=== PATIENT | female | born 1945 | race Caucasian/White ===

== ENCOUNTER 2020-08-25 10:15 | Outpatient (CLI) | payer MEDICARE, SELFPAY ==
--- NOTE | 2020-08-25 | ECG_ITS ---
Measurements Intervals [place] Rate: 54 P: -12 [place]: 155 QRS: -25 QRSD: 106 T: 16 QT: 434 QTc: 411 Interpretive Statements SINUS BRADYCARDIA LOW QRS VOLTAGE IN PRECORDIAL LEADS INCOMPLETE RIGHT BUNDLE BRANCH BLOCK BASELINE WANDER- I, II, III, AVR, AVL, AVF, V1-V4 BORDERLINE ECG Electronically Signed On 08-25-2020 11:09:16 CDT by Matthew Catherine D.O.
[2020-08-25 11:03] LABS: Anion Gap 7 mmol/L (8-16); Blood Urea Nitrogen 19 mg/dL (7-17); Calcium 9.5 mg/dL (8.4-10.2); Carbon Dioxide 29 mmol/L (22-30); Chloride 104 mmol/L (98-107); Estimated Glomerular Filt Rate > 60; Glucose 93 mg/dL (65-105); Potassium 4.1 mmol/L (3.4-5.0); Sodium 140 mmol/L (137-145)
== END 2020-08-25 10:16 | disposition home or self-care (01) ==
LOC: ANHLAB 10:19
PROVIDERS: PCP Nurse Practitioner Adult Health; Visit Provider Orthopaedic Surgery
DX: Z01.818 Encounter for other preprocedural examination (principal)
CPT/HCPCS: 36415; 80048; 93005

== ENCOUNTER 2021-09-14 03:05 | Day surgery (SDC) | payer MEDICARE, SELFPAY ==
[2021-08-27 09:53] VITALS: BMI 26.4
[2021-09-14] MEDS: LACTATED RINGERS 1,000 ML 150 ML IV CONT (07:02)
[2021-09-14 07:06] VITALS: BP 151/79; PULSE 77; RESP 18; TEMP 36.5; O2SAT 96
--- NOTE | 2021-09-14 07:24 | P.CONGI_ITS ---
Assessment and Plan Assessment and plan (1) Family history of colonic polyps: Code(s): Z83.71 - Family history of colonic polyps Status: Acute Assessment and Plan: Patient's family history is significant her sister has had colon polyps. She presents today for screening colonoscopy. GI Consult Note Consult date/time: 09/14/21 07:24 HPI: Carina Ken is a 75 year old female Presents for screening colonoscopy. Patient's family history is significant that her sister has had colon polyps. Patient reports that her current weight appetite bowel movements are normal. She denies abdominal pain. She has had no bleeding. Patient's last colonoscopy 2015 was unremarkable. She presents today for neoplasia screening colonoscopy. Review of Systems Review of Systems: All systems reviewed & are unremarkable except as noted in HPI and below PMFSH Social History Social History Smoking status: Never smoker Alcohol intake: current Drinks per week: 1 Substance use: never Substance use type: does not use Living arrangements: with family Spiritual care concerns: No Meds Home Medications and Allergies Home Medications Medication Instructions Recorded Confirmed Type [place]-3 Fish Oil 1,120 mg PO BID 11/01/19 08/27/21 History atorvastatin 10 mg PO HS 11/01/19 08/27/21 History chlorpheniramine-acetaminophen 1 tablet PO DAILY PRN 11/01/19 09/14/21 History [Coricidin HBP Cold and Flu] escitalopram oxalate [Lexapro] 5 mg PO DAILY 11/01/19 08/27/21 History latanoprost 1 drp OPHTHALMIC (EYE) QPM 11/01/19 08/27/21 History losartan 25 mg PO DAILY 11/01/19 08/27/21 History nctmdwjo-iqh-qskv-FA-lutein 1 tablet PO DAILY 11/01/19 08/27/21 History [Centrum Silver Women] timolol maleate 1 drp EACH EYE BID 08/27/21 08/27/21 History Allergies Allergy/AdvReac Type Severity Reaction Status Date / Time latex Allergy Mild TOPICAL ON Verified 09/14/21 07:04 HANDS-RASH Vital Signs Vital Signs - 24 hr 09/14/21 07:06 Temperature 97.7 F Pulse Rate 77 Respiratory Rate 18 Blood Pressure 151/79 H Pulse Oximetry 96 Exam Narrative: Physical exam reveals patient be alert. Vital signs stable. HEENT exam is unremarkable. Patient is anicteric. Lungs are clear to a uscultation and percussion. Heart is without murmur or extra sounds. Abdominal exam bowel sounds are present soft nontender with no organomegaly. Digital external rectal exam is normal.
--- NOTE | 2021-09-14 07:46 | P.PNAN_ITS ---
Anes - Initial Pre Proc Eval Procedure: Operation Date: 09/14/21 08:00 Proposed Procedures p Screening Colonoscopy - Jameel Dhillon MD Date/Time: 09/14/21 07:46 Surgeon: Jameel Dhillon MD Pre Op Diagnosis: hx of colon polyps Patient Data Age: 75 Gender: F Height: 1.55 m Weight: 63.4 kg Last Vital Signs Temp 97.7 F 09/14/21 07:06 Pulse 77 09/14/21 07:06 Resp 18 09/14/21 07:06 BP 151/79 H 09/14/21 07:06 Pulse Ox 96 09/14/21 07:06 Allergies Allergy/AdvReac Type Severity Reaction Status Date / Time latex Allergy Mild TOPICAL ON Verified 09/14/21 07:04 HANDS-RASH Home Medications Medication Instructions Recorded Confirmed Type [place]-3 Fish Oil 1,120 mg PO BID 11/01/19 08/27/21 History atorvastatin 10 mg PO HS 11/01/19 08/27/21 History chlorpheniramine-acetaminophen 1 tablet PO DAILY PRN 11/01/19 09/14/21 History [Coricidin HBP Cold and Flu] escitalopram oxalate [Lexapro] 5 mg PO DAILY 11/01/19 08/27/21 History latanoprost 1 drp OPHTHALMIC (EYE) QPM 11/01/19 08/27/21 History losartan 25 mg PO DAILY 11/01/19 08/27/21 History esrygvun-owx-qmdp-FA-lutein 1 tablet PO DAILY 11/01/19 08/27/21 History [Centrum Silver Women] timolol maleate 1 drp EACH EYE BID 08/27/21 08/27/21 History Patient hx anesthesia problems: none Family hx anesthesia problems: none Results Review: All pre-operative results and documents have been reviewed as part of the pre-operative evaluation. [facility] Social History Social History Smoking status: Never smoker Alcohol intake: current Drinks per week: 1 Substance use: never Substance use type: does not use Living arrangements: with family Spiritual care concerns: No Anes - Eval Final PreProcedure Day of Procedure 09/14/21 07:46 Patient weight: overweight Heart: regular rate and rhythm Lungs: clear to auscultation Airway: Mallampati scale class II Neurological: alert and oriented Last oral intake: >/= 8 hours ASA classification: III Emergent: no Anesthetic plan: proceed Anesthesia type and monitoring: general GIVS and standard monitoring Results Review: All pre-operative results and documents have been reviewed as part of the pre-operative evaluation. Informed Consent: The patient's anesthetic plan and its attendant risks and benefits were discussed with the patient/family/POA. Questions were solicited and answers provided to the satisfaction of the patient/family/POA.
[2021-09-14 08:23] VITALS: BP 93/55; PULSE 60; RESP 19; O2SAT 97
[2021-09-14 08:33] VITALS: BP 119/63; PULSE 61; RESP 20; O2SAT 98
[2021-09-14 08:43] VITALS: BP 139/68; PULSE 59; RESP 22; O2SAT 97
== END 2021-09-14 08:47 | disposition home or self-care (01) ==
PROVIDERS: PCP Nurse Practitioner Adult Health; Visit Provider Internal Medicine Gastroenterology
PROC: 0DJD8ZZ Inspection of Lower Intestinal Tract, Via Natural or Artificial Opening Endoscopic (ICD-10-PCS; CPT 45378; principal; 2021-09-14 08:00)
DX: Z12.11 Encounter for screening for malignant neoplasm of colon (principal); K57.30 Diverticulosis of large intestine without perforation or abscess without bleeding; Z83.71 Family history of colonic polyps
CPT/HCPCS: G0105; J2704; J7120

== ENCOUNTER 2021-10-31 02:46 | Observation (INO) | payer MEDICARE, SELFPAY ==
[2021-10-31] VITALS (19 sets, daily range): BP systolic 108–153; BP diastolic 49–100; PULSE 55–156; RESP 13–23; TEMP 35.8–36.9; O2SAT 95–100; BMI 26.2
--- NOTE | 2021-10-31 | ECHO_ITS ---
Patient Info Name: Carina Ken Age: 75 years : 1945 Gender: Female Ht: 61 in Wt: 138 lbs BSA: 1.66 m2 HR: 59 bpm Heart Rhythm: Sinus Rhythm Technical Quality: Good Exam Date: 10/31/2021 11:18 AM Exam Location: [facility] Patient Status: Inpatient Admit Date: 10/31/2021 Staff Ordering Physician: Carlos Thomas MD Adjuster Leader: Simona Manning [facility] Attending Provider: María Elena Echeverria MD Referring Physician: Martha MERCEDES; Exam Type: CA echo doppler color flow Study Info Indications I48.1 - Persistent atrial fibrillation Complete two-dimensional, color flow and Doppler transthoracic echocardiogram is performed. Summary 1. Complete two-dimensional, color flow and Doppler transthoracic echocardiogram is performed. 2. Small amount of tricuspid valve regurgitation. 3. Otherwise unremarkable echocardiogram. Left Ventricle Left ventricular chamber dimension is normal. Left ventricular systolic function is normal, estimated at 65-70%. The left ventricular diastolic function is normal. Right Ventricle Right ventricular chamber dimension is normal. Left Atria Left atrial chamber dimension is normal. Right Atria Right atrial chamber dimension is normal. Aortic Valve The aortic valve is normal. Pulmonic Valve The pulmonic valve is normal. Mitral Valve The mitral valve has normal leaflets. Tricuspid Valve The tricuspid valve leaflets are normal. There is mild tricuspid valve regurgitation. Pericardium/Pleural The pericardium appears normal. Aorta The aortic root size at the sinus of Valsalva is normal. Left Ventricular Outflow Tract Name Value Normal LVOT 2D LVOT Diameter 1.9 cm LVOT Doppler LVOT Peak Gradient 4 mmHg LVOT Mean Gradient 2 mmHg LVOT VTI 21 cm LVOT VTI/AV VTI Ratio 1.0 LVOT Stroke Volume 61 ml LVOT CO 3.8 l/min LVOT CI 2.3 l/min/m2 Pulmonic Valve Name Value Normal PV Doppler PV Peak Gradient 2 mmHg Mitral Valve Name Value Normal MV Doppler MV Decel Giles 317 cm/s2 MV PHT 63 ms MV Area (PHT) 3.5 cm2 4.0-5.0 MV Diastolic Function MV E Peak Velocity 69 cm/s MV A Peak Velocity 81 cm/s
--- NOTE | ~2021-10-31 | XR_ITS ---
EXAMINATION: XR chest 1V portable INDICATION: Heart palpitations, hypertension TECHNIQUE: Portable AP chest at 0328 hours COMPARISON: 05/08/2010 FINDINGS: The lungs are free of focal airspace opacities. There is mild atelectasis of the lung bases . No pleural effusion or pneumothorax is identified. The cardiomediastinal silhouette is normal. IMPRESSION: 1. No acute cardiopulmonary abnormality. Reviewed, dictated and finalized at location A. [facility] [facility] [employer]
--- NOTE | 2021-10-31 02:56 | ECG_ITS ---
Measurements Intervals [place] Rate: 127 P: PA: 0 QRS: 93 QRSD: 104 T: 6 QT: 292 QTc: 426 Interpretive Statements ATRIAL FIBRILLATION WITH RAPID VENTRICULAR RESPONSE VENTRICULAR PREMATURE COMPLEX RIGHT AXIS DEVIATION LOW QRS VOLTAGE IN PRECORDIAL LEADS INCOMPLETE RIGHT BUNDLE BRANCH BLOCK MINIMAL Q WAVES- INFERIOR LEADS BASELINE ARTIFACT- V5 ABNORMAL ECG Electronically Signed On 10-31-2021 7:55:00 CLINICAL DOCUMENTATION SPEC by Matthew Catherine D.O.
[2021-10-31] MEDS: dilTIAZem HCl INJ 25 MG/5 ML VIAL 10 MG IV PUSH (03:17)
--- NOTE | 2021-10-31 03:25 | ED.ARRPALP ---
HPI - Arrhythmia/Palpitations General Chief Complaint: Arrhythmia/Palpitations Stated Complaint: irregular heart beat Time Seen by Provider: 10/31/21 02:52 Source: patient Mode of arrival: ambulatory Limitations: no limitations History of Present Illness HPI narrative: This is a 75 year old female with history of hypertension who presents for evaluation of heart racing. Patient woke up this morning due to a rapid heart beat. She states her heart is pounding but she denies shortness of breath, chest pain, vomiting, dizziness or abdominal pain. She denies history of atrial fibrillation diagnosis but she had something similar in 2008. She was evaluated by a engineering scientist at that time and she was started on losartan . She continues to take losartan but she has not seen a engineering scientist since. She denies any other similar episode. She reports she had 1 glass of wine tonight. Related Data Home Medications Medication Instructions Recorded Confirmed [place]-3 Fish Oil 1,120 mg PO BID 11/01/19 08/27/21 atorvastatin 10 mg PO HS 11/01/19 08/27/21 escitalopram oxalate [Lexapro] 5 mg PO DAILY 11/01/19 08/27/21 latanoprost 1 drp OPHTHALMIC (EYE) QPM 11/01/19 08/27/21 losartan 25 mg PO DAILY 11/01/19 08/27/21 opamevtu-czr-nmff-FA-lutein 1 tablet PO DAILY 11/01/19 08/27/21 [Centrum Silver Women] timolol maleate 1 drp EACH EYE BID 08/27/21 08/27/21 Allergies Allergy/AdvReac Type Severity Reaction Status Date / Time latex Allergy Mild TOPICAL ON Verified 10/31/21 02:58 HANDS-RASH Review of Systems Review of Systems: All systems reviewed & are unremarkable except as noted in HPI and below PMFSH Past Medical History Medical History (Updated 10/31/21 @ 05:24 by María Elena Echeverria MD) Anxiety Hyperlipidemia Hypertension Social History Social History Smoking status: Never smoker Alcohol intake: current Drinks per week: 1 Substance use: never Substance use type: does not use Spiritual care concerns: No Exam Const: General: no acute distress and alert Orientation/consciousness: patient oriented x3 Eyes: EOM: EOMs intact bilaterally Chest: Chest palpation & inspection: normal inspection of the chest Resp: Effort & Inspection: normal respiratory effort and no retractions Auscultation: clear to auscultation bilaterally Cardio: Rate: tachycardic Rhythm: abnormal rhythm irregularly irregular Heart sounds: no murmurs GI: GI Palp: Yes Soft to palpation, No Tenderness to palpation present (GI) and No Guarding due to palpation present (GI) Auscultation: normal bowel sounds Back/Spine/Pelvis: Back: no CVA tenderness Skin: General skin exam: normal color Rashes: no rashes Neuro: General: patient oriented x3, moves all extremities and CN's II-XI intact bilaterally Extrem: General: normal to inspection Psych: Mental Status: mental status grossly normal Affect: normal affect Course Reevaluation(s) Reevaluation #1: I have discussed with patient and her that she will need to be admitted for treatment of atrial fibrillation that is new. I Also spoke with Dr. Echeverria who accepts patient to hospitalist service to IMU. Date: 10/31/21 Time: 04:17 Reevaluation #2: Patient actually just converted to sinus rhythm. I discussed with patient that she can be discharged if she stays in sinus. She wants to be obs in hospital instead of discharge at this point. Date: 10/31/21 Time: 06:17 Consultations Consultation #1: I spoke to Dr. Thomas. Patient actually just converted to sinus rhythm. He states he will see patient if admitted. If discharged patient should be started on beta block and anticoagulation. Date: 10/31/21 Time: 06:14 Vital Signs Vital signs: Vital Signs Temperature 98.3 F 10/31/21 02:55 Pulse Rate 156 H 10/31/21 02:55 Respiratory Rate 23 H 10/31/21 02:55 Blood Pressure 153/100 H 10/31/21 02:55 Pulse Oximetry 98 10/31/21 02:55 Temperature 98.3 F
[2021-10-31 03:29] LABS: Basophils Percent Auto 0.2 % (0.2-1.2); Eosinophils Absolute Auto 0.1 K/mm3 (0-0.3); Eosinophils Percent Auto 1.3 % (0-4.4); Hematocrit 45.7 % (37.0-47.0); Hemoglobin 15.5 g/dL (12.0-15.0); Immature Granulocyte Absolute 0.02 K/mm3 (0.00-0.031); Immature Granulocyte Percent A 0.2 % (0-0.5); Lymphocytes Absolute Auto 3.66 K/mm3 (0.9-3.2); Lymphocytes Percent Auto 43.8 % (18.3-44.2); Mean Corpuscular HGB Conc 33.9 g/dl (32-36); Mean Corpuscular Hemoglobin 31.2 pg (26-34); Mean Platelet Volume 9.7 fl (7.4-10.4); Monocytes Absolute Auto 0.8 K/mm3 (0.1-0.6); Monocytes Percent Auto 9.7 % (2.6-8.5); Neutrophils Absolute Auto 3.7 K/mm3 (1.3-6.7); Neutrophils Percent Auto 44.8 % (45.5-73.1); Platelet Count Result 247 k/mm3 (150-375); Red Blood Count 4.97 M/mm3 (4.2-5.4); Red Cell Distribution Width 13.2 % (11.5-14.5); White Blood Count 8.4 K/mm3 (4.5-10.0)
[2021-10-31 03:38] LABS: INR 0.9; Prothrombin Time 11.9 Seconds (11.1-14.7)
[2021-10-31 03:39] LABS: Partial Thromboplastin Time 25.7 SECONDS (22.3-36.8)
[2021-10-31 03:42] LABS: Alanine Aminotransferase 40 U/L (4-35); Albumin Level 4.7 g/dL (3.5-5.1); Alkaline Phosphatase 69 U/L (38-126); Anion Gap 7 mmol/L (8-16); Aspartate Amino Transferase 48 U/L (14-36); Bilirubin,Total 0.4 mg/dL (0.2-1.3); Blood Urea Nitrogen 17 mg/dL (7-17); Calcium 9.5 mg/dL (8.4-10.2); Carbon Dioxide 27 mmol/L (22-30); Chloride 102 mmol/L (98-107); Estimated CRCL calculation 47 ml/min; Estimated Glomerular Filt Rate > 60; Glucose 113 mg/dL (65-110); Magnesium 1.9 mg/dL (1.6-2.3); Potassium 3.7 mmol/L (3.4-5.0); Sodium 136 mmol/L (137-145)
--- NOTE | 2021-10-31 03:43 | PC.NURSE ---
rn double check pati houston rn
[2021-10-31 03:53] LABS: Troponin I < 0.012 ng/mL (0.000-0.034)
[2021-10-31] MEDS: ENOXAPARIN 80 MG/0.8 ML SYRINGE 60 MG SUB-Q (04:15)
[2021-10-31 04:56] LABS: Free T4 Free Thyroxine Reflex 1.26 ng/dL (0.78-2.19)
--- NOTE | 2021-10-31 05:08 | PM.IMHP ---
H&P: HPI History of Present Illness Date/Time: 10/31/21 05:08 Chief Complaint: Palpitations Narrative: This is a 75-year-old female with past medical history significant for hypertension, dyslipidemia, glaucoma. Patient presented to the emergency room was driven by her . Patient was suddenly awakened by palpitations heavy pounding on her chest felt nauseous but no vomiting, no lightheadedness, no dizziness, no near-syncope or syncope and no chest pain ,no cough ,no changes of her vision, her took her blood pressure and he was 130 is over 100s patient try walking and going to the bathroom came back and laying in bed but did not get better. In emergency room patient was found to be on atrial fibrillation and was started on a diltiazem drip at the time of my visit patient denied any discomfort. Patient can not recall 1 other episode back in 2008 at that time she had Holter monitoring but no abnormalities were recorded and patient has remained without symptoms of this nature. Preliminary workup was significant for a TSH of 5.15 a chest x-ray was clear chemistry panel is essentially nonrevealing Review of Systems Review of Systems: Heaviness of the chest, pounding ,palpitations ,nausea. Constitutional: Constitutional: Denies chills, Denies fatigue and Denies fever(s) Eyes: Eyes: Denies change in vision ENT: Denies dysphagia, Denies vertigo, Denies nasal congestion, Denies nasal discharge, Denies nasal obstruction and Denies odynophagia Cardiovascular: Cardiovascular: Denies chest pain at rest, Denies syncope, Reports rapid heart rate, Denies pedal edema, Reports irregular heart rhythm, Denies leg edema, Denies radiating jaw, neck or arm pain, Reports palpitations, Denies dyspnea, Denies dyspnea on exertion and Denies orthopnea Respiratory: Respiratory: Denies cough and Denies dyspnea Gastrointestinal: Gastrointestinal: Denies abdominal pain, Denies dyspepsia, Denies heartburn, Reports nausea and Denies vomiting Genitourinary: Genitourinary: Denies dysuria and Denies flank pain Musculoskeletal: Musculoskeletal: Reports arthralgias (Left knee torn meniscus) Integumentary/Breasts: Skin/Breast: Denies rash Neurologic: Denies focal weakness and Denies Sensory deficit (Neuro) Psychiatric: Psychiatric: Reports no additional psychiatric complaints and Reports as per HPI Endocrine: Endocrine: Reports no additional endocrine complaints and Reports as per HPI Hematologic/Lymphatic: Hematologic/Lymphatic: Reports no additional hematologic/lymphatic complaints and Reports as per HPI Allergic/Immunologic: Allergic/Immunologic: Reports no additional allergic/immunologic complaints and Reports as per HPI [facility] Past Medical History Medical History (Updated 10/31/21 @ 05:24 by María Elena Echeverria MD) Anxiety Hyperlipidemia Hypertension Social History Social History Smoking status: Never smoker Alcohol intake: current Drinks per week: 1 Substance use: never Substance use type: does not use Spiritual care concerns: No Meds Home Medications and Allergies Home Medications Medication Instructions Recorded Confirmed Type [place]-3 Fish Oil 1,120 mg PO BID 11/01/19 08/27/21 History atorvastatin 10 mg PO HS 11/01/19 08/27/21 History escitalopram oxalate [Lexapro] 5 mg PO DAILY 11/01/19 08/27/21 History latanoprost 1 drp OPHTHALMIC (EYE) QPM 11/01/19 08/27/21 History losartan 25 mg PO DAILY 11/01/19 08/27/21 History kberphpo-bgd-tnrn-FA-lutein 1 tablet PO DAILY 11/01/19 08/27/21 History [Centrum Silver Women] timolol maleate 1 drp EACH EYE BID 08/27/21 08/27/21 History Allergies Allergy/AdvReac Type Severity Reaction Status Date / Time latex Allergy Mild TOPICAL ON Verified 10/31/21 02:58 HANDS-RASH Vital Signs Vital Signs - 24 hr 10/31/21 02:55 10/31/21 03:54 10/31/21 04:44 Temperature 98.3 F Pulse Rate 156 H 146 H 127 H Respiratory Rate 23 H 17 20 Blood Pressure 153/100 H 118/70
[2021-10-31 05:38] LABS: Total Triiodothyronine (T3) 1.61 NG/ML (0.97-1.69)
--- NOTE | 2021-10-31 06:17 | PC.NURSE ---
LINDSAY received from [facility] Dr. Mars to discontinue diltiazem drip after EKG confirms pt has converted back to sinus rhythm.
--- NOTE | 2021-10-31 07:13 | PC.NURSE ---
Report received from MICHELLE Hess. Pt ambulating back from bathroom. Reconnected to shelter monitor. Note SR without ectopy. Pt denies cp or shortness of breath. Awaiting floor bed to be available.
--- NOTE | 2021-10-31 07:52 | PC.NURSE ---
Report received by MICHELLE Hess with the ER at 0734. All questions answered and plan of care reviewed. Patient to go to IMU room 214.
--- NOTE | 2021-10-31 08:07 | ADMGEN ---
This patient, Carina Ken, was admitted to IMU Room 214-01 at 0750. Patient/family oriented to hospital policies and general routines including ID bracelet, bed and alarms, visiting hours, pain management, procedures, bathroom and other care routines, personal items, smoking policy, room service/diet, and visiting hours. Information on how to activate the Rapid Response Team has been discussed. Patient/Family are encouraged to report perceived risks to care and to ask questions if they do not understand what they are told or what they should do.
--- NOTE | 2021-10-31 10:28 | ECG_ITS ---
Measurements Intervals [place] Rate: 66 P: 64 [place]: 188 QRS: -35 QRSD: 109 T: 35 QT: 402 QTc: 423 Interpretive Statements SINUS RHYTHM LEFT AXIS DEVIATION LOW QRS VOLTAGE IN PRECORDIAL LEADS INCOMPLETE RIGHT BUNDLE BRANCH BLOCK BORDERLINE ECG Electronically Signed On 10-31-2021 16:58:38 IRON HANDLER by Matthew Catherine D.O.
--- NOTE | 2021-10-31 13:33 | PM.CNCAR ---
Assessment and Plan Additional Plan 75-year-old white female with: Symptomatic atrial fib with RVR for which she was seen in the emergency room early this morning. After being rate control with diltiazem she spontaneously converted back to sinus rhythm and became asymptomatic. The diltiazem has then been discontinued. He does have hypertension and mitral valve prolapse by history as potential etiologies of her atrial fib. At this point I would recommend placing her on metoprolol at a modest dose of 25 mg daily and systemic anticoagulation with Xarelto. I will review her echocardiogram when it is done and hopefully she will not have recurrent atrial fibrillation in the hours that will I had. If she is stable and without arrhythmias tomorrow I would hope she can be discharged for outpatient follow-up. Carlos Thomas MD [facility] History of Present Illness History of Present Illness Consult date/time: 10/31/21 13:33 Consult reason: atrial fibrillation Reason For Visit: atrial fibrillation with rvr,new onset Narrative: This is a pleasant 75-year-old lady I am seeing this afternoon at the request of the hospitalist who has been admitted because of symptomatic atrial fibrillation. The patient has no prior history of known atrial fibrillation. She says she carries the diagnosis of mitral valve prolapse that her primary care physician told her that she had many years ago. She can not really recall how that diagnosis might of been established. In any event she came to the emergency room when she was awakened in the middle of the night with tachycardia and palpitations somewhere between 1 and 130 in the morning. She tried to relax at home and see if this would subside but when it did not she came into the emergency department was found to be in atrial fib with RVR. Of course she was placed on intravenous diltiazem with a bolus and infusion which did control her heart rate and after several hours of being in the emergency room she spontaneously converted back to sinus rhythm and became asymptomatic. I was then contacted by telephone and indicated that the patient certainly be discharged and I can see her in the office however she her preference was to be hospitalized and so I am seeing her in the IMU this afternoon. She is otherwise a reasonably healthy lady she does lead an active lifestyle and does not have any exertional symptoms such as dyspnea or chest pain she denies any history of syncope orthopnea PND or accumulating lower extremity edema. She also has a history of hypertension which is being treated with a low dose of losartan. An echocardiogram has already been performed but has not yet been interpreted and in the setting I am seeing her in consultation. Review of Systems Constitutional: Constitutional: Reports no additional constitutional complaints and Reports fatigue Eyes: Eyes: Reports no additional eye complaints ENT: Reports system reviewed and no additional complaints, except as documented Cardiovascular: Cardiovascular: Reports palpitations Respiratory: Respiratory: Reports no additional respiratory complaints Gastrointestinal: Gastrointestinal: Reports no additional gastrointestinal complaints Musculoskeletal: Musculoskeletal: Reports no additional musculoskeletal complaints Integumentary/Breasts: Skin/Breast: Reports system reviewed and no additional complaints, except as docu Neurologic: Reports system reviewed and no additional complaints, except as documented Endocrine: Endocrine: Reports no additional endocrine complaints Hematologic/Lymphatic: Hematologic/Lymphatic: Reports no additional hematologic/lymphatic complaints Allergic/Immunologic: Allergic/Immunologic: Reports no additional allergic/immunologic complaints [facility] Past Medical History Medical History (Updated 10/31/21 @ 05:24 by María Elena Echeverria MD) Anxiety Hyperlipidemia Hypertension Family History Family History (Updated 10/31/21 @ 08:12 by
[2021-10-31] MEDS: METOPROLOL SUCCINATE EXT REL 25 MG TABCR PO (15:45)
--- NOTE | 2021-10-31 15:49 | PM.IMPN ---
Progress Note: A&P Assessment and Plan (1) Atrial fibrillation with rapid ventricular response: Code(s): I48.91 - Unspecified atrial fibrillation Status: Acute Assessment and Plan: Admit to IMU Diltiazem drip Echocardiogram in a.m. Cardiology consult Anticoagulated with Lovenox 10/31/2021 Interval hisrory: upon arrival to emergency depart patient was started on diltiazem drip this converted patient to sinus rhythm, today patient seen by plant operator control room operator recommended to start on metoprolol 25 mg to control the rhythm and rate, also recommend to anticoagulated patient with Xarelto, patient remains clinically stable, has no complains of chest pain shortness of breath palpitation fever or chills will continue to monitor and further recommendation to follow. (2) Hypertension: Code(s): I10 - Essential (primary) hypertension Status: Inactive Assessment and Plan: Resume home meds Continue to monitor (3) Hyperlipidemia: Code(s): E78.5 - Hyperlipidemia, unspecified Status: Inactive Assessment and Plan: Continue statin (4) Left knee pain: Code(s): M25.562 - Pain in left knee Status: Acute Assessment and Plan: Patient is scheduled for surgery in a few weeks. Tylenol p.r.n. Subjective Date/time seen: 10/31/21 15:49 Chief Complaint: Palpitations HPI Narrative: This is a 75-year-old female with past medical history significant for hypertension, dyslipidemia, glaucoma. Patient presented to the emergency room was driven by her . Patient was suddenly awakened by palpitations heavy pounding on her chest felt nauseous but no vomiting, no lightheadedness, no dizziness, no near-syncope or syncope and no chest pain ,no cough ,no changes of her vision, her took her blood pressure and he was 130 is over 100s patient try walking and going to the bathroom came back and laying in bed but did not get better. In emergency room patient was found to be on atrial fibrillation and was started on a diltiazem drip at the time of my visit patient denied any discomfort. Patient can not recall 1 other episode back in 2008 at that time she had Holter monitoring but no abnormalities were recorded and patient has remained without symptoms of this nature. Preliminary workup was significant for a TSH of 5.15 a chest x-ray was clear chemistry panel is essentially nonrevealing, 10/31/2021 Interval hisrory: upon arrival to emergency depart patient was started on diltiazem drip this converted patient to sinus rhythm, today patient seen by plant operator control room operator recommended to start on metoprolol 25 mg to control the rhythm and rate, also recommend to anticoagulated patient with Xarelto, patient remains clinically stable, has no complains of chest pain shortness of breath palpitation fever or chills will continue to monitor and further recommendation to follow. Review of Systems Review of Systems: All systems reviewed & are unremarkable except as noted in HPI and below Exam Narrative: Patient is comfortable, NAD HEENT: eyes are clear and none icteric LUNGS:CTA HEART: RR S1S2 ABD: not distended Lower extremities: no edema SKIN: nonjaundiced Neuro: grossly intact. Objective Data Vital Signs Vital Signs: Vital Signs - 24 hr 10/31/21 02:55 10/31/21 03:54 10/31/21 04:44 Temperature 98.3 F Pulse Rate 156 H 146 H 127 H Respiratory Rate 23 H 17 20 Blood Pressure 153/100 H 118/70 108/67 Pulse Oximetry 98 96 96 10/31/21 05:23 10/31/21 06:17 10/31/21 07:13 Temperature Pulse Rate 109 H 73 67 Respiratory Rate 13 17 18 Blood Pressure 114/68 108/50 L 124/70 Pulse Oximetry 97 95 97 10/31/21 07:36 10/31/21 07:50 10/31/21 15:45 Temperature 96.4 F L Pulse Rate 63 68 65 Respiratory Rate 16 16 Blood Pressure 118/65 130/56 L Pulse Oximetry 96 98 Intake/Output Intake/Output: Intake & Output 10/28/21 10/29/21 10/30/21 10/31/21 23:59 23:59 23:59 23:59 Intake T
[2021-10-31] MEDS: RIVAROXABAN 20 MG TABLET PO (18:43)
[2021-10-31] MEDS: ESCITALOPRAM OXALATE 5 MG TABLET PO (21:44)
[2021-11-01] VITALS (9 sets, daily range): BP systolic 118–154; BP diastolic 60–81; PULSE 51–76; RESP 15–18; TEMP 36.7–37.1; O2SAT 97–98
[2021-11-01 06:01] LABS: Hematocrit 39.1 % (37.0-47.0); Hemoglobin 13.1 g/dL (12.0-15.0); Mean Corpuscular HGB Conc 33.5 g/dl (32-36); Mean Corpuscular Volume 92.4 fl (80-100); Mean Platelet Volume 9.7 fl (7.4-10.4); Platelet Count Result 197 k/mm3 (150-375); Red Blood Count 4.23 M/mm3 (4.2-5.4); Red Cell Distribution Width 13.3 % (11.5-14.5); White Blood Count 5.6 K/mm3 (4.5-10.0)
[2021-11-01 06:15] LABS: Anion Gap 6 mmol/L (8-16); Blood Urea Nitrogen 14 mg/dL (7-17); Calcium 9.1 mg/dL (8.4-10.2); Carbon Dioxide 26 mmol/L (22-30); Chloride 105 mmol/L (98-107); Estimated CRCL calculation 52 ml/min; Estimated Glomerular Filt Rate > 60; Glucose 98 mg/dL (65-110); Magnesium 2.2 mg/dL (1.6-2.3); Potassium 3.9 mmol/L (3.4-5.0); Sodium 137 mmol/L (137-145)
[2021-11-01] MEDS: METOPROLOL SUCCINATE EXT REL 25 MG TABCR PO (08:21)
[2021-11-01] MEDS: OMEGA 3 POLYUNSAT FATTY ACIDS 1 GM CAP PO (08:21)
[2021-11-01] MEDS: TIMOLOL MALEATE 0.5% OP SOLN 5 ML BOTTLE 1 DROP EACH EYE (08:22)
--- NOTE | 2021-11-01 10:24 | PM.PNCARD ---
Progress Note: A&P Additional Plan 75-year-old lady with paroxysmal atrial fibrillation having been converted to sinus rhythm in the ER yesterday as detailed above. Her echocardiogram looks normal making the diagnosis here low own atrial fibrillation. For now I would recommend continuing the metoprolol and Xarelto that we started yesterday and she can be discharged for follow-up as an outpatient. Carlos Thomas MD [facility] Subjective Date/time seen: Date of service: 11/01/21 10:24 Interval history: Follow-up visit in this 75-year-old lady with: Paroxysmal atrial fibrillation presented with a symptomatic occurrence of this arrhythmia to the emergency department. After being given IV diltiazem she spontaneously converted to sinus rhythm and remains in sinus since then. Low-dose metoprolol has been started and she has been anticoagulated with Xarelto. Echocardiogram done yesterday is essentially unremarkable. Discussed with the patient that her prior diagnosis of mitral valve prolapse should be discarded. She seems to be a good candidate for discharge today. I will arrange follow-up in my office within the next month for ongoing follow-up of her P AFib. Exam Const: General: comfortable and no acute distress HENMT: Mouth: Yes moist mucous membranes Eyes: Sclera: sclerae normal Neck: Neck: supple and no JVD Resp: Effort & Inspection: normal respiratory effort Auscultation: clear to auscultation bilaterally Cardio: Rate: regular rate Rhythm: regular rhythm GI: GI Palp: Yes Soft to palpation Auscultation: normal bowel sounds Skin: General skin exam: normal color Neuro: Cognition (Neuro): normal cognition Extrem: General: normal to inspection Objective Data Vital Signs Vital Signs: Vital Signs - 24 hr 10/31/21 12:00 10/31/21 14:00 10/31/21 15:45 Temperature Pulse Rate 66 65 65 Respiratory Rate Blood Pressure Pulse Oximetry 10/31/21 16:00 10/31/21 18:00 10/31/21 19:50 Temperature 36.3 C L 36.9 C Pulse Rate 86 71 65 Respiratory Rate 18 16 Blood Pressure 119/49 L 120/67 Pulse Oximetry 96 97 10/31/21 20:00 10/31/21 22:00 10/31/21 23:56 Temperature 36.3 C L Pulse Rate 59 L 55 L 62 Respiratory Rate 15 Blood Pressure 136/71 Pulse Oximetry 100 11/01/21 00:00 11/01/21 02:00 11/01/21 04:00 Temperature 37.1 C Pulse Rate 51 L 52 L 54 L Respiratory Rate 15 Blood Pressure 118/60 Pulse Oximetry 98 11/01/21 06:00 11/01/21 08:00 11/01/21 08:21 Temperature 36.7 C Pulse Rate 63 63 68 Respiratory Rate 18 Blood Pressure 154/81 H Pulse Oximetry 97 Intake/Output Intake/Output: Intake & Output 10/29/21 10/30/21 10/31/21 11/01/21 23:59 23:59 23:59 23:59 Intake Total 1260 400 Balance 1260 400 Meds/Results Medications: Active Medications Generic Name Dose Route Start Last Admin Trade Name Freq PRN Reason Stop Dose Admin Atorvastatin Calcium 10 mg 11/01/21 21:00 Atorvastatin 10 Mg Tablet PO HS OMKAR Escitalopram Oxalate 5 mg 11/01/21 21:00 Escitalopram Oxalate 5 Mg Tablet PO HS OMKAR Fish Oil 1 gm 11/01/21 09:00 11/01/21 08:21 [place] 3 Polyunsat Fatty Acids 1 Gm Cap PO 12/01/21 08:59 1 gm DAILY OMKAR Administration Latanoprost 1 drop 11/01/21 18:00 Latanoprost 0.005% Op Soln 2.5 Ml Btl EACH EYE QPM OMKAR Metoprolol Succinate 25 mg 10/31/21 13:35 11/01/21 08:21 Metoprolol Succinate Ext Rel 25 Mg Tabcr PO 25 mg QAM OMKAR Administration Ondansetron HCl 4 mg 10/31/21 04:19 Ondansetron Inj 4 Mg/2 Ml Vial IV PUSH Q4H PRN Nausea Rivaroxaban 20 mg 10/31/21 17:00 10/31/21 18:43 Rivaroxaban 20 Mg Tablet PO 20 mg DAILY@1700 OMKAR Administration Timolol Maleate 1 drop 11/01/21 09:00 11/01/21 08:22 Timolol Maleate 0.5% Op Soln 5 Ml Bottle EACH EYE 1 drop QAM OMKAR Administration Radiology Results: ITS Impressions Chest X-Ray 10/31/21 09:56 IMPRESSION
--- NOTE | 2021-11-01 11:41 | PM.DS ---
DS: Admitting Diagnosis Discharge Date 11/01/2021 Admitting Diagnosis atrial fibrillation with RVR DS: Discharge Diagnosis Discharge Diagnosis (1) Atrial fibrillation with rapid ventricular response: Code(s): I48.91 - Unspecified atrial fibrillation Status: Acute Assessment and Plan: Admit to IMU Diltiazem drip Echocardiogram in a.m. Cardiology consult Anticoagulated with Lovenox 10/31/2021 Interval hisrory: upon arrival to emergency depart patient was started on diltiazem drip this converted patient to sinus rhythm, today patient seen by security inspector recommended to start on metoprolol 25 mg to control the rhythm and rate, also recommend to anticoagulated patient with Xarelto, patient remains clinically stable, has no complains of chest pain shortness of breath palpitation fever or chills will continue to monitor and further recommendation to follow. (2) Hypertension: Code(s): I10 - Essential (primary) hypertension Status: Inactive Assessment and Plan: Resume home meds Continue to monitor (3) Hyperlipidemia: Code(s): E78.5 - Hyperlipidemia, unspecified Status: Inactive Assessment and Plan: Continue statin (4) Left knee pain: Code(s): M25.562 - Pain in left knee Status: Acute Assessment and Plan: Patient is scheduled for surgery in a few weeks. Tylenol p.r.n. DS: Summary Hospital Course Reason for hospitalization: Chief Complaint: Palpitations Narrative: This is a 75-year-old female with past medical history significant for hypertension, dyslipidemia, glaucoma. Patient presented to the emergency room was driven by her . Patient was suddenly awakened by palpitations heavy pounding on her chest felt nauseous but no vomiting, no lightheadedness, no dizziness, no near-syncope or syncope and no chest pain ,no cough ,no changes of her vision, her took her blood pressure and he was 130 is over 100s patient try walking and going to the bathroom came back and laying in bed but did not get better. In emergency room patient was found to be on atrial fibrillation and was started on a diltiazem drip at the time of my visit patient denied any discomfort. Patient can not recall 1 other episode back in 2008 at that time she had Holter monitoring but no abnormalities were recorded and patient has remained without symptoms of this nature. Preliminary workup was significant for a TSH of 5.15 a chest x-ray was clear chemistry panel is essentially nonrevealing Hospital Course: 10/31/2021 Interval hisrory: upon arrival to emergency depart patient was started on diltiazem drip this converted patient to sinus rhythm, today patient seen by security inspector recommended to start on metoprolol 25 mg to control the rhythm and rate, also recommend to anticoagulated patient with Xarelto, patient remains clinically stable, has no complains of chest pain shortness of breath palpitation fever or chills will continue to monitor and further recommendation to follow. patient with a proximal atrial fibrillation patient is clinically stable, currently in sinus rhythm and rate is controlled, has no new complaints denies any chest pain shortness of breath palpitation fever or chills, seen by her security inspector patient is clinically stable will discharge the patient home today, patient will follow-up with her security inspector as scheduled. Status at Discharge Functional status at discharge: independent ambulation Overall status at discharge: patient is back to baseline Time Spent with Patient Time attestation: Total time spent providing and/or coordinating discharge services: Patient was seen and examined at the time of the discharge Condition at discharge is stable Code status: Full code. Time spent preparing discharge summary, discharge medications, discussing discharge planning with case finisher and patient is 35 minutes. Time spent: Greater than 30 minutes Exam Narrative: Patient i
== END 2021-11-01 13:20 | disposition home or self-care (01) ==
LOC: ANHED 04:19 → ANHIMU 11-01 11:40
PROVIDERS: Admitting Provider Internal Medicine; Emergency Provider General Practice; PCP Nurse Practitioner Adult Health; Visit Provider Family Medicine
DX: I48.91 Unspecified atrial fibrillation (principal); I10 Essential (primary) hypertension; E78.5 Hyperlipidemia, unspecified; M25.562 Pain in left knee; F41.9 Anxiety disorder, unspecified; H40.9 Unspecified glaucoma
CPT/HCPCS: 36415; 71045; 80048; 80053; 83735; 84439; 84443; 84480; 84484; 85025; 85027; 85610; 85730; 93005; 93306; 96365; 96366; 96372; 99285; A9270; G0378; J1650

== ENCOUNTER 2023-05-06 09:38 | Emergency (ER) | payer MEDICARE, SELFPAY ==
[2023-05-06] VITALS (21 sets, daily range): BP systolic 99–125; BP diastolic 51–66; PULSE 63–78; RESP 8–22; TEMP 36.4; O2SAT 96–99
--- NOTE | ~2023-05-06 | CT_ITS ---
EXAMINATION: CT brain wo con DATE: 05/06/2023 10:42 INDICATION: Dizziness. TECHNIQUE: Computed tomography (CT) of the head was performed without intravenous contrast. The dose- length product was 605.33 mGy-cm. Automated exposure control and iterative reconstruction technique w ere employed. COMPARISON: None FINDINGS: Brain parenchymal volume is normal for age. There are scattered mild periventricular and sheehan bcortical white matter changes, most likely related to small vessel ischemic disease (microangiopathy ). No ventriculomegaly or midline shift. Basilar cisterns are patent. No acute infarction, hemorrhage , mass or mass effect. Paranasal sinuses and mastoids are pneumatized. No depressed skull fractures. IMPRESSION: 1. No acute intracranial abnormality. Reviewed, dictated and finalized at location []
--- NOTE | 2023-05-06 09:41 | ECG_ITS ---
Measurements Intervals [place] Rate: 71 P: 77 FL: 160 QRS: -22 QRSD: 109 T: 46 QT: 407 QTc: 443 Interpretive Statements SINUS RHYTHM WITH OCCASIONAL SUPRAVENTRICULAR PREMATURE COMPLEXES BORDERLINE LEFT AXIS DEVIATION [QRS AXIS < -20] LOW QRS VOLTAGE IN PRECORDIAL LEADS [QRS DEFLECTION < 1.0 mV IN CHEST LEADS] INCOMPLETE RIGHT BUNDLE BRANCH BLOCK [90+ ms QRS DURATION, TERMINAL R IN V1/V2, 40+ ms S IN I/aVL/V4/V5/V6] COMPARED TO ECG 10/31/2021 06:12:14 NO SIGNIFICANT CHANGES Electronically Signed On 05-06-2023 13:31:28 CDT by Carlos Thomas M.D.
[2023-05-06 10:20] LABS: Basophils Percent Auto 0.2 % (0.2-1.2); Eosinophils Absolute Auto 0.2 K/mm3 (0-0.3); Eosinophils Percent Auto 3.6 % (0-4.4); Hematocrit 46.2 % (37.0-47.0); Hemoglobin 15.3 g/dL (12.0-15.0); Immature Granulocyte Absolute 0.02 K/mm3 (0.00-0.031); Immature Granulocyte Percent A 0.3 % (0-0.5); Lymphocytes Absolute Auto 2.12 K/mm3 (0.9-3.2); Lymphocytes Percent Auto 33.6 % (18.3-44.2); Mean Corpuscular HGB Conc 33.1 g/dl (32-36); Mean Corpuscular Hemoglobin 29.7 pg (26-34); Mean Corpuscular Volume 89.7 fl (80-100); Mean Platelet Volume 10.1 fl (7.4-10.4); Monocytes Absolute Auto 0.4 K/mm3 (0.1-0.6); Monocytes Percent Auto 5.5 % (2.6-8.5); Neutrophils Absolute Auto 3.6 K/mm3 (1.3-6.7); Neutrophils Percent Auto 56.8 % (45.5-73.1); Platelet Count Result 238 k/mm3 (150-375); Red Blood Count 5.15 M/mm3 (4.2-5.4); Red Cell Distribution Width 13.2 % (11.5-14.5); White Blood Count 6.3 K/mm3 (4.5-10.0)
[2023-05-06 10:34] LABS: Alanine Aminotransferase 32 U/L (6-35); Albumin Level 4.2 g/dL (3.5-5.1); Alkaline Phosphatase 68 U/L (38-126); Anion Gap 5 mmol/L (8-16); Aspartate Amino Transferase 41 U/L (14-36); Blood Urea Nitrogen 19 mg/dL (7-17); Calcium 9.4 mg/dL (8.4-10.2); Carbon Dioxide 30 mmol/L (22-30); Chloride 106 mmol/L (98-107); Estimated CRCL calculation 41 ml/min; Estimated Glomerular Filt Rate > 60; Glucose 157 mg/dL (65-110); Potassium 4.1 mmol/L (3.4-5.0); Sodium 141 mmol/L (137-145)
--- NOTE | 2023-05-06 11:14 | ED.GENADULT ---
HPI - General Adult General Chief complaint: Dizziness Stated complaint: LIGHTHEADED DURING BM Time Seen by Provider: 05/06/23 10:09 History of Present Illness HPI narrative: 77-year-old female presented ED for evaluation after an episode of lightheadedness. Patient states she was bearing down for a bowel movement when she had onset of the lightheaded. Patient states while she was sitting there she did become diaphoretic. Patient reports that she did lay down in her lazy boy chair and did feel improved. Patient denies any complaints at this time. Patient was mildly orthostatic upon arrival. Patient states she does feel improved. Patient reports that she does have a prior history of this. Related Data Home Medications Medication Instructions Recorded Confirmed [place]-3 Fish Oil 1,120 mg PO DAILY 11/01/19 10/31/21 atorvastatin 10 mg tablet 10 mg PO HS 11/01/19 10/31/21 escitalopram oxalate 5 mg tablet 5 mg PO DAILY 11/01/19 10/31/21 (Lexapro) latanoprost 0.005 % eye drops 1 drp ophthalmic (eye) QPM 11/01/19 10/31/21 losartan 25 mg tablet 25 mg PO DAILY 11/01/19 10/31/21 timolol maleate 0.5 % eye drops 1 drp EACH EYE QAM 08/27/21 10/31/21 Allergies Allergy/AdvReac Type Severity Reaction Status Date / Time latex Allergy Mild TOPICAL ON Verified 05/06/23 09:49 HANDS-RASH Review of Systems Review of Systems: All systems reviewed & are unremarkable except as noted in HPI and below PMFSH Past Medical History Medical History (Updated 05/06/23 @ 13:48 by Robb Davila MD) Anxiety Hyperlipidemia Hypertension Family History Family History (Updated 10/31/21 @ 08:12 by Amanda Buitrago RN) Mother A-fib Heart failure Dementia Father Cerebrovascular accident Sibling A-fib Breast cancer Thyroid cancer Malignant neoplasm of prostate Social History Social History Smoking status: Never smoker Second hand tobacco smoke exposure: No Alcohol intake: never Drinks per week: 1 Substance use: never Substance use type: does not use Living arrangements: with family Spiritual care concerns: No Exam Narrative: APPEARANCE: Well appearing, no pain, no distress, well-nourished. HEAD: normocephalic, atraumatic. EYES: PERRLA/EOMI, conjunctivae clear. NOSE: Normal no drainage NECK: Supple. No adenopathy, no masses. RESPIRATORY: Airway patent, respirations nonlabored. Clear to auscultation bilaterally, no rales, rhonchi, wheezing. CARDIOVASCULAR: Regular rate and rhythm without murmurs rubs or gallops. ABDOMINAL: Soft, nontender, nondistended, normal bowel sounds MUSCULOSKELETAL: Moves all extremities. Strength/ROM intact, No edema, No calf tenderness. NEURO: Alert. Cranial nerves II through XII intact. Grossly intact SKIN: Warm, dry. Normal Color Course Course Emergency Course: 77-year-old female presented to ED for evaluation after having an episode of lightheadedness and dizziness after a bowel movement. Upon arrival to the ED patient states she does feel improved. Patient was mildly orthostatic and will be treated with IV fluids. Patient was afebrile with no leukocytosis and patient's hemoglobin is stable. No significant abnormalities on the patient's CMP. Head CT showed no acute intracranial abnormality. Patient was updated the results of the work-up and all questions concerns were addressed. Patient is tolerating p.o. and has been drinking fluids. Patient does feel improved. Patient was updated on the results of her work-up and is comfortable with the plan for discharge to home. Vital Signs Vital signs: Vital Signs Temperature 97.6 F 05/06/23 09:50 Pulse Rate 72 05/06/23 09:50 Respiratory Rate 16 05/06/23 09:50 Blood Pressure 125/51 L 05/06/23 09:50 Pulse Oximetry 98 05/06/23 09:50 Oxygen Delivery Room Air 05/06/23 09:50 Temperature 97.6 F 05/06/23 09:50 Pulse Rate 70 05/06/23 13:02 Respiratory Rate 13 05/06/23 13:02 Blood Pres
== END 2023-05-06 13:58 | disposition home or self-care (01) ==
PROVIDERS: Emergency Provider Emergency Medicine; PCP Family Medicine Sports Medicine
DX: R55 Syncope and collapse (principal); E78.5 Hyperlipidemia, unspecified; I10 Essential (primary) hypertension; F41.9 Anxiety disorder, unspecified
CPT/HCPCS: 36415; 70450; 80053; 85025; 93005; 99284

== ENCOUNTER 2023-05-08 00:47 | Emergency (ER) | payer MEDICARE, SELFPAY ==
[2023-05-08] VITALS (8 sets, daily range): BP systolic 131–152; BP diastolic 81–99; PULSE 69–155; RESP 17–21; TEMP 36.6; O2SAT 95–99
--- NOTE | 2023-05-08 00:48 | ECG_ITS ---
Measurements Intervals [place] Rate: 130 P: VT: 0 QRS: -25 QRSD: 114 T: 63 QT: 309 QTc: 456 Interpretive Statements ATRIAL FIBRILLATION WITH RAPID VENTRICULAR RESPONSE BORDERLINE LEFT AXIS DEVIATION [QRS AXIS < -20] LOW QRS VOLTAGE IN PRECORDIAL LEADS [QRS DEFLECTION < 1.0 mV IN CHEST LEADS] PATTERN CONSISTENT WITH PULMONARY DISEASE INCOMPLETE RIGHT BUNDLE BRANCH BLOCK [90+ ms QRS DURATION, TERMINAL R IN V1/V2, 40+ ms S IN I/aVL/V4/V5/V6] MODERATE ST DEPRESSION [0.05+ mV ST DEPRESSION] ABNORMAL ECG COMPARED TO ECG 05/06/2023 09:44:46 ATRIAL FIBRILLATION NOW PRESENT ST (T WAVE) DEVIATION NOW PRESENT Electronically Signed On 05-08-2023 9:12:43 CDT by Melchor Saunders M.D.
--- NOTE | 2023-05-08 01:35 | ECG_ITS ---
Measurements Intervals [place] Rate: 70 P: 67 RI: 171 QRS: -32 QRSD: 107 T: 43 QT: 400 QTc: 434 Interpretive Statements SINUS RHYTHM LEFT AXIS DEVIATION [QRS AXIS < -30] LOW QRS VOLTAGE IN PRECORDIAL LEADS [QRS DEFLECTION < 1.0 mV IN CHEST LEADS] PATTERN CONSISTENT WITH PULMONARY DISEASE INCOMPLETE RIGHT BUNDLE BRANCH BLOCK [90+ ms QRS DURATION, TERMINAL R IN V1/V2, 40+ ms S IN I/aVL/V4/V5/V6] ABNORMAL ECG COMPARED TO ECG 05/08/2023 00:53:17 SINUS RHYTHM NOW PRESENT Electronically Signed On 05-08-2023 9:12:57 CDT by Melchor Saunders M.D.
--- NOTE | 2023-05-08 01:42 | ED.ARRPALP ---
HPI - Arrhythmia/Palpitations General Chief Complaint: Arrhythmia/Palpitations Stated Complaint: afib attack Time Seen by Provider: 05/08/23 01:34 History of Present Illness HPI narrative: Patient with history of atrial fibrillation, currently on metoprolol and Xarelto, has not had an episode in 3 years since her first diagnosis, presents because earlier in the evening she was having a glass of wine with friends on the deck when she suddenly started feeling palpitations. No chest pain or difficulty breathing. She does state that she usually takes her metoprolol at 10 PM but took it at 11 tonight. She keeps track of her heart rate and blood pressure at all times noticed that they were both high. Related Data Home Medications Medication Instructions Recorded Confirmed [place]-3 Fish Oil 1,120 mg PO DAILY 11/01/19 10/31/21 atorvastatin 10 mg tablet 10 mg PO HS 11/01/19 10/31/21 escitalopram oxalate 5 mg tablet 5 mg PO DAILY 11/01/19 10/31/21 (Lexapro) latanoprost 0.005 % eye drops 1 drp ophthalmic (eye) QPM 11/01/19 10/31/21 losartan 25 mg tablet 25 mg PO DAILY 11/01/19 10/31/21 timolol maleate 0.5 % eye drops 1 drp EACH EYE QAM 08/27/21 10/31/21 Allergies Allergy/AdvReac Type Severity Reaction Status Date / Time latex Allergy Mild TOPICAL ON Verified 05/06/23 09:49 HANDS-RASH Review of Systems Review of Systems: CONST: No fever. HEENT: No sore throat C/V: Palpitations RESP: No cough GI: No nausea or vomiting M/S: No joint pain. SKIN: No rash. NEURO: [No headache or focal numbness or weakness] PSYCH: [No depression] [facility] Past Medical History Medical History (Updated 05/08/23 @ 01:43 by Natalie Larry MD) Anxiety Hyperlipidemia Hypertension Family History Family History (Updated 10/31/21 @ 08:12 by Amanda Buitrago RN) Mother A-fib Heart failure Dementia Father Cerebrovascular accident Sibling A-fib Breast cancer Thyroid cancer Malignant neoplasm of prostate Social History Social History Smoking status: Never smoker Second hand tobacco smoke exposure: No Alcohol intake: never Drinks per week: 1 Substance use: never Substance use type: does not use Living arrangements: with family Spiritual care concerns: No Exam Narrative: EXAMINATION OF ORGAN SYSTEMS/BODY AREAS: Constitutional: Vital signs per nursing GENERAL:[No acute distress, non-toxic appearing.] HEAD: Normal with no signs of head trauma. EYES: EOMI, conjunctiva normal ENT: Hearing grossly intact LUNGS: Nonlabored breathing. HEART: Irregularly irregular with fast rate ABD: No distention EXT: Normal range of motion, ambulating with normal steady gait SKIN: [No rashes or lesions.] NEURO: [Alert and oriented x 3. No gross focal sensory or strength deficits.] PSYCH: Normal affect Course Vital Signs Vital signs: Vital Signs Temperature 97.9 F 05/08/23 00:56 Pulse Rate 135 H 05/08/23 00:56 Respiratory Rate 18 05/08/23 00:56 Blood Pressure 152/99 H 05/08/23 00:56 Pulse Oximetry 99 05/08/23 00:56 Oxygen Delivery Room Air 05/08/23 00:56 Temperature 97.9 F 05/08/23 00:56 Pulse Rate 69 05/08/23 02:15 Respiratory Rate 18 05/08/23 02:15 Blood Pressure 131/81 05/08/23 02:15 Pulse Oximetry 96 05/08/23 02:15 Oxygen Delivery Room Air 05/08/23 00:56 MDM - Arrhythmia/Palpitations MDM Narrative Medical decision making narrative: 77-year-old female with history of atrial fibrillation maintained on metoprolol and Xarelto presents here with feeling palpitations, vital signs notable for tachycardia, on exam she is well-appearing, although her rate is irregularly irregular, and EKG showing A-fib with RVR in the 130s, no ST elevations, some slight depressions in inferior leads. Patient was placed in a room, and I did note on monitors/telemetry that patient had now spontaneously converted to normal sinus rhythm. I did reevaluate the patient and she now
== END 2023-05-08 02:17 | disposition home or self-care (01) ==
LOC: ANHED 01:44
PROVIDERS: Emergency Provider Emergency Medicine; PCP Family Medicine Sports Medicine
DX: I48.91 Unspecified atrial fibrillation (principal); Z79.01 Long term (current) use of anticoagulants; F41.9 Anxiety disorder, unspecified; I10 Essential (primary) hypertension; E78.5 Hyperlipidemia, unspecified
CPT/HCPCS: 93005; 99283

== ENCOUNTER 2024-03-13 00:29 | Day surgery (SDC) | payer MEDICARE, SELFPAY ==
[2024-03-02 11:20] VITALS: BMI 27.1
--- NOTE | 2024-03-02 11:42 | PC.NURSE ---
Spoke with PATIENT regarding medication XARELTO. Pt. verbalizes understanding that the last dose of XARELTO is to be taken on 03/10/2024 the Endoscopist will instruct them when to restart after the procedure.
[2024-03-13 07:12] VITALS: BP 148/61; PULSE 59; RESP 18; TEMP 36.1; O2SAT 98
[2024-03-13] MEDS: LACTATED RINGERS 1,000 ML 150 ML IV CONT (07:27)
--- NOTE | 2024-03-13 08:15 | WPDANESEPPF ---
Anes - Initial Pre Proc Eval Procedure: Operation Date: 03/13/24 08:30 Proposed Procedures p Flexible Sigmoidoscopy - Esdras Freire MD Date/Time: 03/13/24 08:15 Surgeon: Esdras Freire MD Pre Op Diagnosis: hemmorhage of anus and rectum Patient Data Age: 78 Gender: F Height: 1.55 m Weight: 65 kg Last Vital Signs Temp 97 F L 03/13/24 07:12 Pulse 59 L 03/13/24 07:12 Resp 18 03/13/24 07:12 BP 148/61 H 03/13/24 07:12 Pulse Ox 98 03/13/24 07:12 O2 Del Method Room Air 03/13/24 07:12 Allergies Allergy/AdvReac Type Severity Reaction Status Date / Time latex Allergy Mild TOPICAL ON Verified 03/13/24 07:09 HANDS-RASH Home Medications Medication Instructions Recorded Confirmed Type [place]-3 Fish Oil 1,120 mg PO DAILY 11/01/19 03/02/24 History atorvastatin 10 mg tablet 10 mg PO HS 11/01/19 03/02/24 History escitalopram oxalate 5 mg tablet 5 mg PO DAILY 11/01/19 03/02/24 History (Lexapro) timolol maleate 0.5 % eye drops 1 drp RIGHT EYE QAM 08/27/21 03/02/24 History rivaroxaban 20 mg tablet (Xarelto) 20 mg PO DAILY@1700 #30 tabs 11/01/21 03/13/24 Rx Centrum Silver Women 1 tab-cap PO DAILY 03/02/24 03/02/24 History Turmeric-Curcumen 500 mg PO DAILY 03/02/24 03/02/24 History ascorbic acid (vitamin C) 1,000 mg 1 g PO DAILY 03/02/24 03/02/24 History tablet bimatoprost 0.01 % eye drops 1 drp RIGHT EYE HS 03/02/24 03/02/24 History (Lumigan) cholecalciferol (vitamin D3) 125 125 mcg PO DAILY 03/02/24 03/02/24 History mcg (5,000 unit) tablet (Vitamin D3) metoprolol succinate 50 mg 50 mg PO HS 03/02/24 03/02/24 History tablet,extended release 24 hr prednisolone acetate 1 % eye 1 drp EACH EYE QID 03/02/24 03/02/24 History drops,suspension Patient hx anesthesia problems: none Family hx anesthesia problems: none Results Review: All pre-operative results and documents have been reviewed as part of the pre-operative evaluation. [facility] Past Medical History Medical History Anxiety Hyperlipidemia Hypertension Family History Family History Mother A-fib Heart failure Dementia Father Cerebrovascular accident Sibling A-fib Breast cancer Thyroid cancer Malignant neoplasm of prostate Social History Social History Smoking status: Never smoker Second hand tobacco smoke exposure: No Alcohol intake: current Drinks per week: 1 Substance use: never Substance use type: does not use Living arrangements: with family Spiritual care concerns: No Anes - Eval Final PreProcedure Day of Procedure 03/13/24 08:15 Patient weight: normal Heart: regular rate and rhythm Lungs: clear to auscultation Airway: Mallampati scale class II Neurological: alert and oriented Last oral intake: >/= 8 hours ASA classification: III Emergent: no Anesthetic plan: proceed Anesthesia type and monitoring: general GIVS and standard monitoring Results Review: All pre-operative results and documents have been reviewed as part of the pre-operative evaluation. Informed Consent: The patient's anesthetic plan and its attendant risks and benefits were discussed with the patient/family/POA. Questions were solicited and answers provided to the satisfaction of the patient/family/POA.
--- NOTE | 2024-03-13 08:19 | PM.HPGS ---
History of Present Illness History of Present Illness Consent: Risks, benefits, and alternatives have been discussed and questions answered. Patient agrees to proceed with procedure. Chief complaint: hemmorhage of anus and rectum Narrative: Carina Ken is a 78 year old female with intermittent rectal bleeding but none for 2 months, last colonoscopy 2020, also using xarelto Review of Systems Review of Systems: All systems reviewed & are unremarkable except as noted in HPI and below PMFSH Past Medical History Medical History (Updated 03/13/24 @ 08:20 by Esdras Freire MD) Anxiety Hyperlipidemia Hypertension Rectal bleeding Family History Family History Mother A-fib Heart failure Dementia Father Cerebrovascular accident Sibling A-fib Breast cancer Thyroid cancer Malignant neoplasm of prostate Social History Social History Smoking status: Never smoker Second hand tobacco smoke exposure: No Alcohol intake: current Drinks per week: 1 Substance use: never Substance use type: does not use Living arrangements: with family Spiritual care concerns: No Meds Home Medications and Allergies Home Medications Medication Instructions Recorded Confirmed Type [place]-3 Fish Oil 1,120 mg PO DAILY 11/01/19 03/02/24 History atorvastatin 10 mg tablet 10 mg PO HS 11/01/19 03/02/24 History escitalopram oxalate 5 mg tablet 5 mg PO DAILY 11/01/19 03/02/24 History (Lexapro) timolol maleate 0.5 % eye drops 1 drp RIGHT EYE QAM 08/27/21 03/02/24 History rivaroxaban 20 mg tablet (Xarelto) 20 mg PO DAILY@1700 #30 tabs 11/01/21 03/13/24 Rx Centrum Silver Women 1 tab-cap PO DAILY 03/02/24 03/02/24 History Turmeric-Curcumen 500 mg PO DAILY 03/02/24 03/02/24 History ascorbic acid (vitamin C) 1,000 mg 1 g PO DAILY 03/02/24 03/02/24 History tablet bimatoprost 0.01 % eye drops 1 drp RIGHT EYE HS 03/02/24 03/02/24 History (Elaineigan) cholecalciferol (vitamin D3) 125 125 mcg PO DAILY 03/02/24 03/02/24 History mcg (5,000 unit) tablet (Vitamin D3) metoprolol succinate 50 mg 50 mg PO HS 03/02/24 03/02/24 History tablet,extended release 24 hr prednisolone acetate 1 % eye 1 drp EACH EYE QID 03/02/24 03/02/24 History drops,suspension Allergies Allergy/AdvReac Type Severity Reaction Status Date / Time latex Allergy Mild TOPICAL ON Verified 03/13/24 07:09 HANDS-RASH Vital Signs Vital Signs - 24 hr 03/13/24 07:12 Temperature 97 F L Pulse Rate 59 L Respiratory Rate 18 Blood Pressure 148/61 H Pulse Oximetry 98 Oxygen Delivery Room Air Exam Const: General: comfortable and no acute distress HENMT: Face/Nose/Sinus: Normal nares present Eyes: General: appearance normal, both eyes and all related structures Neck: Neck: no JVD Resp: Auscultation: clear to auscultation bilaterally Cardio: Rate: regular rate Rhythm: regular rhythm GI: Inspection: non-distended GI Palp: Yes Soft to palpation Skin: General skin exam: normal color Neuro: General: gait normal Speech: normal speech Extrem: General: normal to inspection Psych: Mental Status: mental status grossly normal Assessment and Plan Assessment and plan (1) Rectal bleeding: Code(s): K62.5 - Hemorrhage of anus and rectum Status: Acute Assessment and Plan: sigmoidoscopy, probably perianal source
[2024-03-13 08:37] VITALS: BP 98/63; PULSE 58; RESP 19; O2SAT 97
[2024-03-13 08:47] VITALS: BP 120/64; PULSE 62; RESP 16; O2SAT 100
[2024-03-13 08:57] VITALS: BP 129/63; PULSE 55; RESP 19; O2SAT 100
== END 2024-03-13 09:03 | disposition home or self-care (01) ==
PROVIDERS: PCP Family Medicine Sports Medicine; Visit Provider Internal Medicine Gastroenterology
PROC: 0DJD8ZZ Inspection of Lower Intestinal Tract, Via Natural or Artificial Opening Endoscopic (ICD-10-PCS; CPT 45330; principal; 2024-03-13 08:30)
DX: K62.5 Hemorrhage of anus and rectum (principal); D12.0 Benign neoplasm of cecum; D12.3 Benign neoplasm of transverse colon; K62.1 Rectal polyp; K64.8 Other hemorrhoids; K64.4 Residual hemorrhoidal skin tags; K57.30 Diverticulosis of large intestine without perforation or abscess without bleeding; I10 Essential (primary) hypertension; F41.9 Anxiety disorder, unspecified; E78.5 Hyperlipidemia, unspecified; Z79.01 Long term (current) use of anticoagulants; Z80.3 Family history of malignant neoplasm of breast; Z80.8 Family history of malignant neoplasm of other organs or systems; Z80.42 Family history of malignant neoplasm of prostate; Z82.49 Family history of ischemic heart disease and other diseases of the circulatory system
CPT/HCPCS: 45385; 88305; J2704; J7120

== ENCOUNTER 2024-03-29 10:04 | Emergency (ER) | payer MEDICARE, SELFPAY ==
[2024-03-29 10:07] VITALS: BP 118/65; PULSE 68; RESP 18; TEMP 36.1; O2SAT 100
--- NOTE | 2024-03-29 10:10 | ECG_ITS ---
SEE SCANNED COPY FOR CONFIRMED REPORT MTDD
[2024-03-29 10:49] VITALS: BP 120/70; PULSE 63; RESP 22; O2SAT 98
--- NOTE | 2024-03-29 11:14 | PC.NURSE ---
Report received and care of patient assumed at this time. EDP at bedside.
--- NOTE | 2024-03-29 11:21 | ED.GENADULT ---
HPI - General Adult General Chief complaint: Recheck/Abnormal Lab/Rx Stated complaint: bp low Time Seen by Provider: 03/29/24 10:52 History of Present Illness HPI narrative: Carina Ken is a 78 y/o female who presents today with reports of not feeling well since about Tuesday. She states that she came back from [place] on Tuesday and she has been feeling sinus/ cough/ sore throat since then and genearlized feeling fatigued tired. SHe states that she hasn't had much of an appetite and hasn't had food since yesterday and no water today. Her has been checking her b/p and they were concerned because her b/p was 90s systolic. Since being here her b/p has improved She denies fevers she states she had frequent bowel movements yesterday no diarrhea / but having soft stools and felt more tired with the BMs Denies any blood in stools Denies chest pain/ SOB/ abdominal pain / nausea/ vomiting Related Data Home Medications Medication Instructions Recorded Confirmed [place]-3 Fish Oil 1,120 mg PO DAILY 11/01/19 03/02/24 atorvastatin 10 mg tablet 10 mg PO HS 11/01/19 03/02/24 escitalopram oxalate 5 mg tablet 5 mg PO DAILY 11/01/19 03/02/24 (Lexapro) timolol maleate 0.5 % eye drops 1 drp RIGHT EYE QAM 08/27/21 03/02/24 Centrum Silver Women 1 tab-cap PO DAILY 03/02/24 03/02/24 Turmeric-Curcumen 500 mg PO DAILY 03/02/24 03/02/24 ascorbic acid (vitamin C) 1,000 mg 1 g PO DAILY 03/02/24 03/02/24 tablet bimatoprost 0.01 % eye drops 1 drp RIGHT EYE HS 03/02/24 03/02/24 (Lumigan) cholecalciferol (vitamin D3) 125 125 mcg PO DAILY 03/02/24 03/02/24 mcg (5,000 unit) tablet (Vitamin D3) metoprolol succinate 50 mg 50 mg PO HS 03/02/24 03/02/24 tablet,extended release 24 hr prednisolone acetate 1 % eye 1 drp EACH EYE QID 03/02/24 03/02/24 drops,suspension Allergies Allergy/AdvReac Type Severity Reaction Status Date / Time latex Allergy Mild TOPICAL ON Verified 03/29/24 10:48 HANDS-RASH Review of Systems Review of Systems: CONSTITUTIONAL: Denies fever, chills, Reports feeling generally tired/ fatigued EYES: Denies visual changes, redness, or discharge. ENT: Reports nasal congestion/ sore throat/for about 5 days CARDIOVASCULAR: Denies chest pain, palpitations, or edema. RESPIRATORY: Denies cough or dyspnea. GASTROINTESTINAL: Denies abdominal pain, nausea, vomiting, or diarrhea. GENITOURINARY: Denies dysuria or hematuria. SKIN: Denies rash or itching. MUSCULOSKELETAL: Denies back pain, joint pain, or myalgia. NEUROLOGIC: Reports headache off and on for a few days, no numbness, dizziness, or weakness. PSYCHIATRIC: Denies anxiety or depression. [facility] Past Medical History Medical History Anxiety Hyperlipidemia Hypertension Rectal bleeding Family History Family History Mother A-fib Heart failure Dementia Father Cerebrovascular accident Sibling A-fib Breast cancer Thyroid cancer Malignant neoplasm of prostate Social History Social History Smoking status: Never smoker Second hand tobacco smoke exposure: No Alcohol intake: current Drinks per week: 1 Substance use: never Substance use type: does not use Living arrangements: with family Spiritual care concerns: No Exam Narrative: GENERAL: no acute distress. HEAD: Normocephalic, atraumatic. EYES: PERRLA and EOMI. ENT: Nares clear, no rhinorrhea or epistaxis. Mucous membranes moist. Oropharynx without tonsillar hypertrophy exudate or other lesions. NECK: Supple. No adenopathy or masses. No carotid bruits or JVD CHEST: Clear to auscultation. No respiratory distress. No wheezes rales or rhonchi HEART: Regular rate and rhythm. No murmur heard. Normal peripheral pulses. ABDOMEN: Soft, nontender, nondistended, normal active bowel sounds. EXTREMITIES: Normal range of
[2024-03-29] MEDS: LACTATED RINGERS 1,000 ML 999 ML IV CONT (11:26)
[2024-03-29 11:37] LABS: Basophils Percent Auto 0.2 % (0.2-1.2); Eosinophils Percent Auto 0.5 % (0-4.4); Hematocrit 47.6 % (37.0-47.0); Hemoglobin 15.8 g/dL (12.0-15.0); Immature Granulocyte Absolute 0.01 K/mm3 (0.00-0.031); Immature Granulocyte Percent A 0.2 % (0-0.5); Lymphocytes Absolute Auto 2.22 K/mm3 (0.9-3.2); Lymphocytes Percent Auto 37.3 % (18.3-44.2); Mean Corpuscular HGB Conc 33.2 g/dl (32-36); Mean Corpuscular Hemoglobin 29.8 pg (26-34); Mean Corpuscular Volume 89.8 fl (80-100); Mean Platelet Volume 10.4 fl (7.4-10.4); Monocytes Absolute Auto 0.4 K/mm3 (0.1-0.6); Monocytes Percent Auto 7.2 % (2.6-8.5); Neutrophils Absolute Auto 3.3 K/mm3 (1.3-6.7); Neutrophils Percent Auto 54.6 % (45.5-73.1); Platelet Count Result 209 k/mm3 (150-375); Red Cell Distribution Width 13.2 % (11.5-14.5)
[2024-03-29 11:49] LABS: Alanine Aminotransferase 31 U/L (6-35); Albumin Level 4.4 g/dL (3.5-5.1); Alkaline Phosphatase 64 U/L (38-126); Anion Gap 9 mmol/L (4-12); Aspartate Amino Transferase 44 U/L (14-36); Blood Urea Nitrogen 21 mg/dL (7-17); Calcium 9.5 mg/dL (8.4-10.2); Carbon Dioxide 23 mmol/L (22-30); Chloride 108 mmol/L (98-107); Estimated CRCL calculation 46 ml/min; Estimated Glomerular Filt Rate > 60; Glucose 110 mg/dL (65-110); Lipase 202 U/L (23-300); Potassium 3.9 mmol/L (3.4-5.0); Sodium 140 mmol/L (137-145)
[2024-03-29 12:00] LABS: Troponin I < 0.012 ng/mL (0.000-0.034)
[2024-03-29 12:13] LABS: Influenza A QL RT-PCR Negative (Negative); Influenza B QL RT-PCR Negative (Negative); RSV RNA, RT-PCR Negative (Negative); SARS-CoV-2 RNA PCR Positive (Negative)
[2024-03-29 13:38] VITALS: BP 142/67; PULSE 61; RESP 20; O2SAT 99
[2024-03-29] MEDS: SODIUM CHLORIDE 0.9% IV 1,000 ML 999 ML IV CONT (13:38)
[2024-03-29 13:45] LABS: Appearance Urine Turbid (Clear); Bacteria Urine 4+ /hpf; Bilirubin Urine Negative (Negative); Blood Urine 1+ (Negative); Color Urine Yellow (Yellow); Glucose Urine UA Negative (Negative); Ketones Urine Negative (Negative); Leukocyte Esterase Ur 3+ LEU/UL (Negative); Nitrate Urine Positive (Negative); Protein Urine Trace mg/dL (Negative); RBC Urine 0-2 /hpf (0-2); Specific Grav Ur 1.017 (1.001-1.035); Squamous Epithelial Cell Urine None Seen /hpf (Few); WBC Urine >100 /hpf (0-3)
[2024-03-29 13:47] LABS: Add Urine Microscopic? YES
[2024-03-29 14:53] VITALS: BP 126/84; PULSE 60; RESP 18; O2SAT 98
[2024-03-29 14:54] LABS: Troponin I < 0.012 ng/mL (0.000-0.034)
[2024-03-29 15:33] VITALS: BP 126/79; PULSE 73; RESP 18; O2SAT 99
== END 2024-03-29 15:34 | disposition home or self-care (01) ==
PROVIDERS: Emergency Provider Nurse Practitioner Family; PCP Family Medicine Sports Medicine
DX: U07.1 COVID-19 (principal); N30.01 Acute cystitis with hematuria; I10 Essential (primary) hypertension; E78.5 Hyperlipidemia, unspecified; F41.9 Anxiety disorder, unspecified
CPT/HCPCS: 36415; 80053; 81001; 83690; 84484; 85025; 87077; 87086; 87088; 87186; 87637; 93005; 96361; 96365; 99284; J0696; J7030; J7120

== ENCOUNTER 2024-09-27 10:50 | Outpatient (CLI) | payer MEDICARE, SELFPAY ==
--- NOTE | ~2024-09-27 | DEXA_ITS ---
Bone Density Report Name: NEERAJ PEREZ Age: 78 Sex: Female Ethnicity: White Date of : 1945 Indication: postmenopausal; screening for osteoporosis; height loss; hysterectomy; Referring Provider: PEG, SHAUNA Dukes Study: Bone densitometry was performed. Exam Date: September 27, 2024 Accession number: [id number] Bone Density: Region BMD T-score Z-score Classification AP Spine(L1-L4) 1.346 2.7 5.2 Normal Femoral Neck (Left) 0.859 0.1 2.2 Normal Total Hip (Left) 1.158 1.8 3.7 Normal Femoral Neck (Right) 0.829 -0.2 2.0 Normal Total Hip (Right) 1.066 1.0 2.9 Normal Total Hip Mean 1.112 1.4 3.3 Normal World Health Organization criteria for BMD impression classify patients as: Normal (T-score at or above -1.0), Osteopenia (T-score between -1.0 and -2.5), or Osteoporosis (T-score at or below -2.5). 10-year Fracture Risk: FRAX not reported because: All T-scores for Spine Total, Hip Total, Femoral Neck at or above -1.0 Clinical Information Provided by Patient: Has used the following medications: Jose griffin Has the following medical conditions: Hysterectomy Patient maximum height was 62 Menopause Age: 57 Onset of menses at age 14 Number of children 5 Impression: The patient has normal bone mass. Discussion: BONE DENSITY IS ABOVE THE MINIMUM DESIRABLE LEVEL AT ALL SKELETAL SITES TESTED. This patient?s bone mineral density is above the minimum desirable level (T-score -1.0 or better) at all sites measured. The patient should follow a healthful lifestyle (good nutrition with adequate calcium and vitamin D, and appropriate weight-bearing exercise). Follow-Up: Consider repeating this study in 5 years or sooner if there is some new clinical indication. Reported by: HILARY on 09/27/2024 11:26:00 AM. Reviewed, dictated and finalized at location [facility]
== END 2024-09-27 10:51 | disposition home or self-care (01) ==
LOC: ANHIMG 10:51
PROVIDERS: PCP Family Medicine Sports Medicine; Visit Provider Family Medicine Sports Medicine
DX: Z78.0 Asymptomatic menopausal state (principal)
CPT/HCPCS: 77080

== ENCOUNTER 2025-09-02 15:16 | Outpatient (CLI) | payer MEDICARE, SELFPAY ==
--- OUTSIDE RECORDS SUMMARY | 2008-07-26 09:24 | XMS_ITS | Continuity of Care Document ---
Author Organization [facility] Address [address] [place] [address] utive [facility] [address] [place] [address] Phone Care Team Providers Care Light Bulb Tester Name Role Phone Boom Padillahil Unavailable Unavailable Procedures Procedure Date Eye Exam, New Patient Advance Directives Directive Yes / No Effective Date File Name No Information Encounters Encounter Description Practice Location Reason(s) For Visit Diagnoses Date Provider Providers Copied on Encounter [facility], [address] [place] [address] [address], [place], [place], [id number], [place] tel:[phone] [facility] No Information [phone] [facility] [address], [place], [address], [place]. tel:[phone] Family History Family Member Type Diagnosis Age At Onset No Information Payers Payer name Insurance type Covered democrat ID Authoriza tion(s) No Information Social History Type Description Quantity Date Captured Comments Sex Female Smoking Status No Information Chief Complaint And Reason For Visit No Information Reason For Referral Reason For Referral No Information History Of Present Illness Encounter Date Complaint History Of Prese nt Illness No Information Functional Status Date Functional Assessmen t No Information Instructions Date Instruction Additional Infor mation No Information Assessments Type Assessment Date No Information Patient Care Teams Name Effective Dates (start - stop) Status Members No Information
--- NOTE | ~2025-09-02 | MM_ITS ---
EXAMINATION: MM screening jayme BI w rob HISTORY: Screening TECHNIQUE: Craniocaudal and mediolateral oblique 3-D tomosynthesis images were obtained and synthetic 2-D images were generated. CAD analysis was submitted and interpreted. COMPARISON: 03/02/2013 BREAST PARENCHYMAL COMPOSITION: The breasts are heterogeneously dense, which may obscure small masses. FINDINGS: There is no evidence of suspicious mass, calcification, or architectural distortion to suggest malignancy. There has been no suspicious interval change. IMPRESSION: 1. No mammographic evidence of malignancy. Recommend routine screening mammography in one year. BI-RADS Category 2: Benign finding(s) Reviewed, dictated and finalized at location Q. IMPRESSION: 1. No mammographic evidence of malignancy. Recommend routine screening mammogra phy in one year. BI-RADS Category 2: Benign finding(s)
--- OUTSIDE RECORDS SUMMARY | 2025-09-02 16:01 | XMS_ITS | Clinical Summary ---
Author Organization [facility] [address] Address [address] [place] [address] Care Team Providers Care Engineer And Geologist Name Role Phone Anum Estrada MD Primary Care Provider Allergies Active Allergy Reactions Criticality Noted Date Comments Clonazepam Unknown 12/17/2021 Latex Other (See comments) Low 12/17/2021 Latex gloves only Ramipril Cough Low 12/17/2021 Medications omega-3 fatty acids/fish oil (FISH OIL [place]ME[place] 3-6-9 ORAL) Fish Oil [place] 3-6-9 2 daily 10/08/20 15 Active multivitamin tablet multivitamin tablet 1 DAILY 09/24/20 13 Active TURMERIC ORAL Take 1 capsule by mouth daily Active Lumigan 0.01 % ophthalmic drops ADMINISTER 1 DROP INTO BOTH EYES BEFORE SLEEPING FOR 12 MONTHS. 01/09/20 24 Active escitalopram (LEXAPRO) 5 mg tablet Take 1 tablet (5 mg total) by mouth daily 100 tablet 1 04/19/20 24 Active atorvastatin (LIPITOR) 10 mg tablet Take 1 tablet (10 mg total) by mouth daily 100 tablet 3 04/26/20 24 Active phenazopyridine (PYRIDIUM) 100 mg tabletIndicatio ns:Dysuria Take 1 tablet (100 mg total) by mouth 3 (three) times a day as needed for urinary pain 6 tablet 08/10/20 24 Active rivaroxaban (Xarelto) 20 mg tablet Take 1 tablet (20 mg total) by mouth daily 30 tablet 6 03/07/20 25 Active metoprolol XL (TOPROL-XL) 50 mg extended release tabletIndicatio ns:Paroxysmal atrial fibrillation (HCC) TAKE 1 TABLET BY MOUTH EVERY DAY 90 tablet 1 08/05/20 25 Active metoprolol XL (TOPROL-XL) 50 mg extended release tabletIndicatio ns:Paroxysmal atrial fibrillation (HCC) TAKE 1 TABLET BY MOUTH EVERY DAY 90 tablet 1 02/12/20 25 2024 Discontinued Active Problems Problem Noted Date Diagnosed Date Gastroesophageal reflux disease 01/03/2023 Hyperlipidemia 01/03/2023 Mitral valve prolapse 01/03/2023 KAYLAH (generalized anxiety disorder) 01/03/2023 Mild major depression 01/03/2023 Paroxysmal atrial fibrillation 04/01/2022 Resolved Problems Problem Noted Date Diagnosed Date Resolved Date Hypercalcemia 01/03/2023 05/04/2024 Benign essential hypertension 11/25/2021 05/03/2023 Immunizations Immunization Administration Dates Next Due Influenza, Quad, Adjuvantate d, Intramuscular 08/19/2023,08/18/2022 Influenza, Quadrivalent, Hig h Dose, Preservative Free, Intrr 08/19/2023,09/05/2021,07/24/2020 Influenza, Quadrivalent, Spl it, Intramuscular 09/08/2021,08/14/2020,10/16/2019 Influenza, Trivalent, High D ose, Split, Preservative Free, Intramuscular 12/07/2018,10/05/2017,10/11/2016,10/08 Influenza, Trivalent, IM (MDV) 09/16/2014 Influenza, Trivalent, Preser vative Free, Intramuscular 08/17/2013 Influenza, Unspecified 08/19/2023 Pneumococcal Conjugate PCV 13 10/05/2017 Pneumococcal Polysaccharide PPV23 03/21/2023 Tdap 01/03/2024,08/11/2012 ZOSTER LIVE 07/16/2011 ZOSTER Recombinant 08/14/2020,09/10/2019 Surgical History Surgery Date Site/Laterality Comments HYSTERECTOMY 12/01/2005 CYSTOCELE REPAIR 12/01/2005 KNEE ARTHROSCOPY Right KNEE ARTHROSCOPY W/ LATERAL RELEASE 09/02/2020 right k nee CATARACT EXTRACTION 08/27/1991 right eye Medical History Medical History Date Comments Hypertension Hyperlipidemia Cataracts, bilateral Anxiety and depression Arthritis Glaucoma H/O mammogram 03/07/2024 Family History Medical History Relation Name Comments Arthritis Brother 1 Roberto Cancer Brother 1 Roberto Depression Brother 1 Roberto Diabetes Brother 1 Roberto Hyperlipidemia Brother 1 Roberto Hypertension Brother 1 Roberto No Known Problems Brother 2 Hyperlipidemia Brother 3 Gene Cancer Father Edward Hyperlipidemia Father Edward Hypertension Father Edward Stroke Father Edmagaly Arthritis Mother Maria Del Carmen COPD Mother Maria Del Carmen Depression Mother Maria Del Carmen Hyperlipidemia Mother Maria Del Carmen Hypertension Mother Maria Del Carmen No Known Problems Sister 1 Arthritis Sister 2 Karyn Cancer Sister 2 Karyn Depression Sister 2 Karyn Hyperlipidemia Sister 2 Karyn Hypertension Sister 2 Karyn Relation Name Status Comments Brother 1 Roberto Alive Brother 2 Alive Brother 3 Gene Father Thierry (Age 89) Mother Maria Del Carmen (Age 90) Sister 1 Alive Sister 2 Karyn Social History Tobacco Use Types Packs/Day Years Used Date Smoking Tobacco: Never Smokeless Tobacco: Never Tobacco Cessation:Counseling Given: Not Answered AUDIT-C Answer Date Recorded Q1: How often do you have a drink containing alcohol? Never 05/04/2024 Q2: How many drinks containi ng alcohol do you have on a typical day when you are drinking? Patient does not drink Q3: How often do you have si x or more drinks on one occasion? Never 05/04/2024 PHQ-2 Answer Date Recorded PHQ-2 Total Score (If total score is 3 or more points, staff should administer the PHQ-9) 0 05/02/2024 Comments No Sex and Gender Information Value Date Recorded Sex Assigned at Not on file Legal Sex Female 12:50 AM UTILIZATION SPECIALIST Gender Identity Female 08/25/2023 11:27 AM CDT Sexual Orientation Not on file Obstetrics History Last Filed Vital Signs Vital Sign Reading Time Taken Comments Blood Pressure 148/84 08/10/2024 3:28 PM CDT Pulse 64 08/10/2024 3:28 PM CDT Temperature 36.5 C (97.7 F) 08/10/2024 3:28 PM CDT Respiratory Rate 18 08/10/2024 3:28 PM CDT Oxygen Saturation 99% 08/10/2024 3:28 PM CDT Inhaled Oxygen Concentration - - Weight 65.3 kg (144 lb) 08/10/2024 3:28 PM CDT Height 152.4 cm (5') 08/10/2024 3:28 PM CDT Body Mass Index 28.12 08/10/2024 3:28 PM CDT Plan of Treatment Health Maintenance Due Date Last Done Comments Osteoporosis Screening-Bone Density Scan 1945 Hepatitis B Screening 1963 Depression Screening 05/04/2025 05/04/2024, 09/26/2023, 09/26/2023, Additional history exists Fall Risk Assessment 05/04/2025 05/04/2024, 05/03/2023, 01/03/2023 Well Visit 65+ 05/04/2025 05/04/2024, 05/03/2023 Covid-19 Vaccine (3 - 2024-2 6 season) 2025 02/07/2021, 01/17/2021 Influenza Vaccine (#1) 2025 , 08/19/2023, 08/19/2023, Additional history exists DTaP/Tdap/Td Vaccine (3 - Td or Tdap) 01/03/2034 01/03/2024, 08/11/2012 Zoster Vaccine Completed 08/14/2020, 08/22, 07/16/2011 Hepatitis C Screening Completed 01/10/2023 Pneumococcal vaccine 65+ Completed 03/21/2023, 09/21 Breast Cancer Screening-Mammogram Discontinued 024 Colon Cancer Screening-Colonoscopy Discontinued 03/13/2024 Procedures Procedure Name Priority Date/Time Associated Diagnosis Comments COLONOSCOPY Routine 03/13/2024 MAMMOGRAPHY Routine 03/07/2024 HEPATITIS C ANTIBODY Routine 01/10/2023 9:02 AM UTILIZATION SPECIALIST Encounter for hepatitis C screening test for low risk patient from Last 3 Months or Most Recently Relevant to Health Maintenance Results * (ABNORMAL) COLONOSCOPY (03/13/2024) Scribed Colonoscopy Abnormal Historical Provider HEALTH MAINTENANCE Final Result * HM MAMMOGRAPHY (03/07/2024) Mammography Normal Historical Provider HEALTH MAINTENANCE Final Result * Hepatitis C antibody (01/10/2023 9:02 AM UTILIZATION SPECIALIST) Hep C Ab Nonreactive Nonreactive [facility] Comment: Interpretive Data Nonreactive: Antibodies to HCV not detected. Does NOT exclude the possibility of recent exposure to HCV. Equivocal: Equivocal for HCV antibodies. Supplemental molecular testing will be automatically performed to determine infection status in accordance with current CDC screening recommendations. Reactive: Positive for HCV antibodies. This may represent current or past HCV infection. Supplemental molecular testing will be automatically performed to determine current infection status in accordance with current CDC screening recommendations. Interpretive data was last revised on 2020. Blood 01/10/2023 9:02 AM UTILIZATION SPECIALIST 01/10/2023 3:19 PM UTILIZATION SPECIALIST Anum Estrada MD LAB MICROBIOLOGY - GEN ERAL ORDERABLES Final Result [facility] [id number] Department [place] [address] from Last 3 Months or Most Recently Relevant to Health Maintenance Insurance MEDICARE MEDICARE [facility] MEDICARE SUPPLEMENT Care Teams Engineer And Geologist Relationship Specialty Start Date End Date Anum Estrada MD PCP - General Family Practice 01/03/23
--- OUTSIDE RECORDS SUMMARY | 2025-09-02 16:01 | XMS_ITS | Patient Health Record ---
Author Organization [employer] [facility] Address [address] [place] [address] Care Team Providers Care Inspector Health Care Facilities Name Role Phone Carolyn Alcala Primary Care Provider Andree Arellano MD, Edmond Unavailable [phone] ALLERGIES No Known Allergies REASON FOR REFERRAL No Information MEDICATIONS Medication SIG (Take, Route, Fr equency, Duration) Notes Start Date End Date Status Centrum Silver Activ e Fish Oil Active Latanoprost Active Timolol Maleate Acti ve Escitalopram Oxalate Active Atorvastatin Calcium Active Metoprolol Tartrate Active xarelto Active IMMUNIZATIONS Vaccine Route Administration Date Status Comme nts Influenza Unknown 03/11/2022 Administered pneumoccocal Unknown 03/11/2022 Administered SOCIAL HISTORY Tobacco Use: Social History Observation Description Date Details (start date - stop date) Never Smoker NA - NA Sex Assigned At : Social History Observation Description Sex Assigned At Unknown Tobacco Use: Question Answer Notes Patient is a: nonsmoker Alcohol screening: Question Answer Notes Did you have a drink containing alcohol in the p ast year? 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 Ins [address] [address] [place] [address] [phone] [id number] SuellenCarina Self - patient is the insured MEDICAL (GENERAL) HISTORY Medical History History ICD Code hypertension high cholesterol arrhythmia depression Surgical History Surgery Date(Month/Year) cataract removal dilatation and curettage hysterectomy cystocele repair right knee arthroscopy
--- OUTSIDE RECORDS SUMMARY | 2025-09-02 16:01 | XMS_ITS | Encounter Summary ---
Author Organization [facility] Address [address] [place] [address] Care Team Providers Care Roof Painter Name Role Phone Darlene Shaw MD Primary Care Provider + Rodolfo Stewart MD Unavailable [phone] Carlos Thomas MD Unavailable Encounter Details Date Type Department Care Team (Late Contact Info) Description 11/15/2024 MyChart Message Enc [facility] Family [facility] [address] [address] Lorena Juarez NP [address] [address] Follow up Social History Tobacco Use Types Packs/Day Years Used Date Smoking Tobacco: Never Passive Smoke Exposure: Never Smokeless Tobacco: Never Alcohol Use Standard Drinks/Week Comments Not Currently 0 (1 standard drink = 0.6 oz pur e alcohol) occ. PHQ-2 Answer Date Recorded Patient Health Questionnaire-2 Score 0 11/06/2024 Comments Unknown Sex and Gender Information Value Date Recorded Sex Assigned at Not on file Legal Sex Female 10:27 AM CDT Gender Identity Not on file Sexual Orientation Not on file documented as of this encounter Plan of Treatment Upcoming Encounters Date Type Department Care Team (Late Contact Info) Description 08/08/2026 8:30 AM CDT Office Visit [facility] [address] [address] Darlene Shaw MD [address] [place] [phone] documented as of this encounter Visit Diagnoses Not on filedocumented in this encounter Care Teams Roof Painter Relationship Specialty Start Date End Date Darlene Shaw MD [address] [place] [address] PCP - General FAMILY PRACTICE 11/06/24 [place] [address] [place] [address] OPHTHALMOLOGY 07/30/25 Carlos Thomas MD [address] [place] [address] [phone] CARDIOVASCULAR DISEASE 07/30/25 Dr. Dora Kirkpatrick [facility] [address] [place] [address] [phone] OPTOMETRY 06/16/25 [facility] [address] [place], [place] [phone] 06/16/25 documented as of this encounter
--- OUTSIDE RECORDS SUMMARY | 2025-09-02 16:01 | XMS_ITS | Clinical Summary ---
Author Organization [facility] Address [address] [place] [address] Care Team Providers Care Thread Puller Name Role Phone Darlene Muñiz MD Primary Care Provider + Rodolfo Stewart MD Unavailable Carlos Thomas MD Unavailable [phone] Allergies No known active allergies Medications rivaroxaban (XARELTO) 20 MG Tab tablet Take 1 tablet (20 mg total) by mouth daily with supper. Take with food Active metoprolol succinate ER (TOPROL-XL) 50 MG 24 hr tablet Take 1 tablet (50 mg total) by mouth daily. Active timolol hemihydrate (BETIMOL) 0.25 % ophthalmic solution 1-2 drops 2 (two) times daily. Active bimatoprost (LUMIGAN) 0.01 % Solution Place 1 drop into both eyes nightly at bedtime. Active fish oil (OMEGA-3 FATTY ACID) 1000 MG Cap capsule Take 1 capsule (1,000 mg total) by mouth 2 (two) times daily. Active multi vitamin/minerals (THERA-M ENHANCED) tablet Take 1 tablet by mouth daily. Active escitalopram (LEXAPRO) 10 MG tabletIndications :Mild major depression Take 1 tablet (10 mg total) by mouth daily. 90 tablet 3 4 11/06/20 25 Active lisinopril (PRINIVIL) 40 MG tabletIndications :Essential hypertension Take 1 tablet (40 mg total) by mouth daily. 90 tablet 3 5 01/23/20 26 Active TURMERIC OR Take 1 capsule by mouth daily. Active Active Problems Problem Noted Date Diagnosed Date Elevated liver enzymes 05/10/2025 Overview (06/10/2025): Patient reports no alcohol use. Held statin for the last month. Occasional epigastric pain but this is resolved. Assessment & Plan (06/10/2025 12:20 PM CDT): Climbing liver enzymes. Ordered hepatitis panel and hepatitis C labs along with repeat CMP in 2-3 weeks. Also ordered liver ultrasound. May need to involve GI if no explanation found. Assessment & Plan (05/10/2025 11:02 AM CDT): Recommend 1 month holding statin and repeating CMP in 1 month. May need ultrasound at that time if persistently elevated. Prediabetes 05/09/2025 Stage 3a chronic kidney disease 05/09/2025 Overview (05/10/2025): GFR 59 in October and 55 in April 2025. Previous to that was normal. Patient reports she has been taking a protein shake supplement regularly. Assessment & Plan (05/10/2025 11:01 AM CDT): Will monitor BMP and repeat again in 1 month to ensure stability. Encouraged her to eliminate the protein shake and incorporate more high-fiber foods instead. Could consider Farxiga in the future if persistent. Essential hypertension 11/06/2024 Overview (12/13/2024): Patient attributes this to some increased stress. Thoughts of the future and family wanting she and her to downsize and move closer to them. Readings were elevated at last office visit as well. Continued metoprolol and was started on lisinopril titrating up to 40 mg daily. Home readings now 130-140s systolic. Assessment & Plan (06/10/2025 12:20 PM CDT): Controlled. Initial readings at clinic were elevated but she checked her reading when she got home and updated me with improved values. Continue current regimen. Assessment & Plan (05/10/2025 11:01 AM CDT): Controlled. Continue lisinopril and metoprolol. Assessment & Plan (12/13/2024 10:42 AM SALES DEVELOPMENT CONSULTANT): Controlled. Occasional readings are borderline. Cont lisinopril and metoprolol. She will continue monitoring home readings. Assessment & Plan (11/06/2024 8:57 AM SALES DEVELOPMENT CONSULTANT): New diagnosis. Not controlled. Metoprolol which is used for rate control has not been adequate in managing but cannot be increased due to low pulse. Will have her begin tracking blood pressures at home to confirm readings are indeed elevated above 140/90. Will initiate low-dose lisinopril 5 mg daily and request an update Tuesday next week to decide if higher dose is necessary. CMP reviewed. KAYLAH (generalized anxiety disorder) 01/03/2023 Overview (11/06/2024): Patient takes Lexapro. Symptoms well controlled. In the past, daughters noted changes in mood. Has been taking medication for years. Assessment & Plan (11/06/2024 8:58 AM SALES DEVELOPMENT CONSULTANT): Chronic and controlled. Continue Lexapro. Gastroesophageal reflux disease 01/03/2023 Overview (11/06/2024): Takes a tums about once a week. Mixed hyperlipidemia 01/03/2023 Overview (05/10/2025): Patient takes atorvastatin 10 mg nightly. Reports lately some significant myalgias particularly when waking up in the morning. Assessment & Plan (05/10/2025 10:34 AM CDT): Lipid panel at goal. Will trial 1 month without the statin to see if this resolves her myalgias. Would prefer she return to taking medication. Assessment & Plan (11/06/2024 8:59 AM SALES DEVELOPMENT CONSULTANT): Ordered CMP and lipid panel for next visit. Continue atorvastatin. Mild major depression 01/03/2023 Overview (11/06/2024): Takes Lexapro. Assessment & Plan (05/10/2025 11:01 AM CDT): Stable. Continue Lexapro. Mitral valve prolapse 01/03/2023 Overview (11/06/2024): Sees Dr. Thomas at [place]. Paroxysmal atrial fibrillation 04/01/2022 Overview (11/06/2024): Rate controlled on metoprolol and takes Xarelto for anticoagulation. Dr. Thomas manages xarelto and metoprolol. Patient reports that she was hospitalized 3 times in the past for atrial fibrillation. This was while she was on metoprolol 25 mg daily which resulted in an increase to 50 mg daily. Assessment & Plan (05/10/2025 11:00 AM CDT): Repeat CBC confirms no anemia. Stable. Assessment & Plan (11/06/2024 8:59 AM SALES DEVELOPMENT CONSULTANT): Managed per cardiology. Chronic and stable. Encounters Date Type Department Care Team Description 08/02/2025 [facility] Message Enc [address] [address] Darlene Muñiz MD Blood pressure 07/30/2025 9:30 AM CDT Office Visit [address] [address] Darlene Muñiz MD Medicare Wellness (Patient presents today for their Medicare Annual Wellness Visit.) 07/30/[address] [address] Darlene Muñiz MD Health Maintenance Follow Up (Elevated B/P at today's AWV) 07/30/[address] [address] Darlene Muñiz MD Appointment Request (Req for DM eye exam) 07/30/2025 Travel 07/09/[address] [place] [address] Darlene Muñiz MD Appointment Request (AWV- Left message) 07/02/2025 7:15 AM CDT Allied Health/Nurse Visit [address] [place] [address] Darlene Muñiz MD Lab Draw 07/02/2025 - 07/02/2025 11:59 PM CDT Hospital Encounter [facility] [address] Darlene Muñiz MD Discharge Disposition: Home or Self Care (Routine Discharge) 07/02/2025 Travel 07/02/2025 Results Follow-Up [address] [place] [address] Darlene Muñiz MD [facility], COMPREHENSIVE METABOLIC PANEL 06/24/2025 1:31 PM CDT - 06/24/2025 11:59 PM CDT Hospital [facility] [place] [address] Darlene Muñiz MD Discharge Disposition: Home or Self Care (Routine Discharge) 06/24/2025 Travel 06/10/2025 9:30 AM CDT Office Visit [address] [place] [address] Darlene Muñiz MD Medication Check (Here to discuss meds and discuss lab work. ) 06/10/2025 Travel 06/06/2025 7:30 AM CDT Allied Health/Nurse Visit [address] [place] [address] Darlene Muñiz MD Lab Draw 06/06/2025 Travel from Last 3 Months Immunizations Immunization Administration Dates Next Due FLUAD (IIV, Trivalent, 0.5 M L Pre-filled Syringe) 09/03/2024 Fluzone High Dose (IIV, triv alent, 0.5mL) 03/11/2022 Fluzone High Dose - >Age 65 (Prefilled Syringe) 09/05/2021,07/24/2020 Influenza (Generic) 08/19/2023,09/16/2014,2012 Influenza Adult (Generic) 08/19/2023,,08/19/2023,2021,08/18/2022,09/08/2021,09/05/2021,0 08/14/2020,07/24/2020,10/16/2019, 019,10/05/2017,10/11/2016,10/08/2015 Pneumococcal (Pneumovax 23) 03/21/2023, Pneumococcal (Prevnar 13) 10/05/2017 Shingrix 08/14/2020,09/10/2019 Tdap (Generic) 01/03/2024,08/11/2012 Zoster (Zostavax) [address] Unt/0.65Ml 07/16/2011 Family History Medical History Relation Comments Cancer Brother 1 prostrate cancer Diabetes Brother 1 Type 2 Hypertension Brother 1 Hyperlipidemia Brother 2 No Known Problems Daughter 1 No Known Problems Daughter 2 No Known Problems Daughter 3 No Known Problems Daughter 4 No Known Problems Daughter 5 Cancer Father prostrate cancer Stroke Father Arthritis Mother Depression Mother Hyperlipidemia Mother Hypertension Mother Cancer Sister Thyroid and [facility] cancer Depression Sister Hypertension Sister Relation Status Comments Brother 1 Alive Brother 2 Alive Daughter 1 Alive Daughter 2 Alive Daughter 3 Alive Daughter 4 Alive Daughter 5 Alive Father Mother Sister Alive Social History Tobacco Use Types Packs/Day Years Used Date Smoking Tobacco: Never Passive Smoke Exposure: Never Smokeless Tobacco: Never Tobacco Cessation:Counseling Given: No Alcohol Use Standard Drinks/Week Comments Not Currently 0 (1 standard drink = 0.6 oz pur e alcohol) AUDIT-C Answer Date Recorded Q1: How often do you have a drink containing alcohol? Never 07/30/2025 Q2: How many drinks containi ng alcohol do you have on a typical day when you are drinking? Patient does not drink Q3: How often do you have si x or more drinks on one occasion? Never 07/30/2025 PHQ-2 Answer Date Recorded Patient Health Questionnaire-2 Score 2 07/30/2025 Comments Unknown Sex and Gender Information Value Date Recorded Sex Assigned at Not on file Legal Sex Female 10:27 AM CDT Gender Identity Not on file Sexual Orientation Not on file Last Filed Vital Signs Vital Sign Reading Time Taken Comments Blood Pressure 146/94 07/30/2025 10:12 AM CDT Pulse 85 06/10/2025 9:38 AM CDT Temperature 36.8 C (98.3 F) 07/30/2025 9:53 AM CDT Respiratory Rate 16 02/13/2024 9:26 AM CDT Oxygen Saturation 97% 06/10/2025 9:38 AM CDT Inhaled Oxygen Concentration - - Weight 64.5 kg (142 lb 3.2 oz) 07/30/2025 9:53 A M CDT Height 154.9 cm (5' 1) 07/30/2025 9:53 AM CDT Body Mass Index 26.87 07/30/2025 9:53 AM CDT Plan of Treatment Upcoming Encounters Date Type Department Care Team (Late st Contact Info) Description 08/08/2026 8:30 AM CDT Office Visit [facility] - [place] [address] [place] [address] Darlene Muñiz MD [address] [place] [phone] Health Maintenance Due Date Last Done Comments Influenza Adult (#1) 2025 09/03/2024, 08/19/2023, 08/19/2023, Additional history exists COVID-19 Vaccine ( season) 2026 02/07/2021, 01/17/2021 Postponed from 07/22/2025 (Patient Refused) RSV Immunization or 60+ Years (1 - 1-dose 75+ series) 07/30/2026 Postponed from 2022 (Patient Refused) Annual Medicare Wellness Visit 07/31/2026 07/30/2025 DTaP, Tdap and Td Vaccines (3 - Td or Tdap) 01/03/2034 01/03/2024, 08/11/2012 Zoster Vaccines Completed 08/14/2020, 08/22, 07/16/2011 Pneumococcal Vaccine: 50+ Years Completed 03/21/2023, 03/11/2022, 10/05/2017 Dexa Scan (General) Completed 09/27/2024, Hepatitis C Completed 07/02/2025 PHQ-2 (Physician [place]) Completed 07/30/2025 Hepatitis A Vaccines Aged Out No long er eligible based on patient's age to complete this topic Meningococcal B Vaccine Aged Out No l onger eligible based on patient's age to complete this topic Meningococcal Vaccine Aged Out No genny daniel eligible based on patient's age to complete this topic RSV Immunizations Under 20 Months Aged Out No longer eligible based on patient's age to complete this topic Medical Devices Implanted Type Area Marketing Agent Device Identifier Shelf Expiration Date Model / Serial / Lot Tecnis 1-Piece Iol Implanted:Qty: 1 on 02/13/2024 by Rodolfo Stewart MD at [facility] Left: Eye [employer] [id number] 07/14/2026 [id number] / [id number] / Procedures Procedure Name Priority Date/Time Associated Diagnosis Comments COLLECTION VENOUS BLOOD VENIPUNCTURE Routine 07/02/2025 7:22 AM CDT Elevated liver enzymes Transaminitis COMPREHENSIVE METABOLIC PANEL Routine 07/02/2025 7:22 AM CDT Elevated liver enzymes HEPATITIS PANEL,ACUTE Routine 07/02/2025 7:22 AM CDT Elevated liver enzymes Transaminitis US ABD LIMITED Routine 06/24/2025 2:30 PM CDT Elevated liver enzymes COLLECTION VENOUS BLOOD VENIPUNCTURE Routine 06/06/2025 7:38 AM CDT Stage 3a chronic kidney disease (CMS/HCC) Elevated liver enzymes COMPREHENSIVE METABOLIC PANEL Routine 06/06/2025 7:38 AM CDT Stage 3a chronic kidney disease (CMS/HCC) Elevated liver enzymes BONE DENSITY GENERIC (SCAN ORDER) 09/27/2024 from Last 3 Months or Most Recently Relevant to Health Maintenance Results * (ABNORMAL) COMPREHENSIVE METABOLIC PANEL (07/02/2025 7:22 AM CDT) Only the most recent of2 resultswithin the time period is included. [facility] SODIUM S/P/B 143 136 - 145 MMOL/L 07/02/2025 2:30 PM CDT [facility] POTASSIUM S/P/B 4.3 3.5 - 5.1 MMOL/L 07/02/2025 2:30 PM CDT [facility] CHLORIDE S/P/B 107 98 - 107 MMOL/L 07/02/2025 2:30 PM CDT [facility] CO2 25.7 21 - 32 MMOL/L 07/02/2025 2:30 PM CDT [facility] GLUCOSE 91 70 - 99 MG/DL 07/02/2025 2:30 PM CDT [facility] BUN 19(H) 7 - 18 MG/DL 07/02/2025 2:30 PM CDT [facility] CREATININE S/P/B 0.91 0.55 - 1.02 MG/DL 07/02/2025 2:30 PM CDT [facility] CALCIUM S/P/B 9.2 8.4 - 10.5 MG/DL 07/02/2025 2:30 PM CDT [facility] BILIRUBIN TOTAL S/P/B 1.0 0.2 - 1.0 MG/DL 07/02/2025 2:30 PM CDT [facility] ALKALINE PHOSPHATASE S/P/B 71 55 - 142 U/L 07/02/2025 2:30 PM CDT [facility] AST 44(H) 15 - 37 U/L 07/02/2025 2:30 PM CDT [facility] ALT 71(H) 14 - 59 U/L 07/02/2025 2:30 PM CDT [facility] TOTAL PROTEIN S/P/B 5.9(L) 6.4 - 8.2 G/DL 07/02/2025 2:30 PM CDT [facility] ALBUMIN S/P/B 3.5 3.4 - 5.0 G/DL 07/02/2025 2:30 PM CDT [facility] ANION GAP 10.3 5 - 15 MMOL/L 07/02/2025 2:30 PM CDT [facility] Comment:REFERENCE RANGE NOT ESTABLISHED OSMOLALITY (CALC) 298 MOSM/KG 025 2:30 PM CDT [facility] Comment:REFERENCE RANGE NOT ESTABLISHED GFR ESTIMATE 65(L) >90 ML/MIN/1. 73 M2 07/02/2025 2:30 PM CDT [facility] GFR NOTES GFR REFERENCE S: 07/02/2025 2:30 PM CDT [facility] Comment: THE ESTIMATED GFR IS CALCULATED USING THE 2020 CKD-EPI EQUATION. THE FOLLOWING CATEGORIES FOR GRADING RENAL FUNCTION ARE RECOMMENDED BY THE INTERNATIONAL SOCIETY OF NEPHROLOGY (KDIGO 2012 CLINICAL PRACTICE GUIDELINE). G1,NORMAL OR HIGH: >89 ml/min/1.73 m2 G2,MILDLY DECREASED: 60-89 ml/min/1.73 m2 G3A,MILDLY TO MODERATELY DECREASED: 45-59 ml/min/1.73 m2 G3B,MODERATELY TO SEVERELY DECREASED: 30-44 ml/min/1.73 m2 G4,SEVERELY DECREASED: 15-29 ml/min/1.73 m2 G5,KIDNEY FAILURE: <15 ml/min/1.73 m2 07/02/2025 7:22 AM CDT us Darlene Muñiz MD LABORATORY Final Re sult -[facility] [address] [place] [address], * HEPATITIS PANEL,ACUTE (07/02/2025 7:22 AM CDT) HEPATITIS B SURFACE AG NON-REACT ALEKS NON-REACT ALEKS 07/02/2025 6:44 PM CDT [facility] Comment:HBsAg NOT DETECTED. HEP B CORE IGM NON-REACT ALEKS NON-REACT ALEKS 07/02/2025 6:44 PM CDT [facility] Comment: IgM ANTI HBc NOT DETECTED. DOES NOT EXCLUDE THE POSSIBILITY OF EXPOSURE TO OR INFECTION WITH HBV. NO RETEST REQUIRED. HIGH DOSES OF BIOTIN MAY INTERFERE WITH THIS TEST RESULT. CORRELATION TO CLINICAL HISTORY AND PRESENTATION RECOMMENDED. HAV IGM NON-REACT ALEKS NON-REACT ALEKS 07/02/2025 6:44 PM CDT [facility] Comment: IgM ANTI HAV NOT DETECTED. DOES NOT EXCLUDE THE POSSIBILITY OF EXPOSURE TO OR INFECTION WITH HAV. LEVELS OF IgM ANTI HAV MAY BE BELOW THE CUTOFF IN EARLY INFECTION. HEPATITIS C AB NON-REACT ALEKS NON-REACT ALEKS 07/02/2025 6:44 PM CDT [facility] Comment: ANTIBODIES TO HCV NOT DETECTED. DOES NOT EXCLUDE THE POSSIBILITY OF EXPOSURE TO HCV. 07/02/2025 7:22 AM CDT us Darlene Muñiz MD LABORATORY Final Re sult [facility] [address] [place] [address], [id number] * US ABD LIMITED (06/24/2025 2:30 PM CDT) Anatomical Region Laterality Modality Abdomen Ultrasound 07/01/2025 4:36 PM CDT Impressions 07/01/2025 4:45 PM CDT IMPRESSION: Normal sonographic appearance of the right upper quadrant. Ordered By: DARLENE MUÑIZ Interpreted By: Melchor Reyes MD, 07/01/2025 4:36 PM Narrative 07/01/2025 4:45 PM CDT [facility] [address] [place], [place] [address] EXAMINATION: US ABD LIMITED DATE: 06/24/2025 1:34 PM HISTORY: 79 years Female. Elevated liver enzymes. Nausea. COMPARISON: None. TECHNIQUE: An ultrasound examination of the right upper quadrant was performed to assess grayscale appearance, color Doppler flow characteristics, and spectral waveform analysis. FINDINGS: Liver is normal in size, contour, and echotexture. Anechoic hepatic cysts are noted, one measuring 1.7 x 1.7 x 1.3 cm. A second hepatic cyst measures 1.4 x 0.9 x 1.1 cm. Portal vein is patent and demonstrates normal hepatopedal blood flow. Gallbladder wall is normal in thickness. No cholelithiasis or pericholecystic fluid is identified. Sonographic Carranza sign is negative. Common bile duct and common hepatic duct are not visualized. Visualized portions of the pancreatic head and body are normal. Right kidney measures 9.5 x 4.3 x 5.8 cm and demonstrates normal echogenicity without hydroureteronephrosis. Procedure Note Melchor Reyes MD - 07/01/2025 [facility] [address] [place], [place] [address] EXAMINATION: US ABD LIMITED DATE: 06/24/2025 1:34 PM HISTORY: 79 years Female. Elevated liver enzymes. Nausea. COMPARISON: None. TECHNIQUE: An ultrasound examination of the right upper quadrant wasperformed to assess grayscale appearance, color Doppler flowcharacteristics, and spectral waveform analysis. FINDINGS: Liver is normal in size, contour, and echotexture. Anechoic hepatic cystsare noted, one measuring 1.7 x 1.7 x 1.3 cm. A second hepatic cystmeasures 1.4 x 0.9 x 1.1 cm. Portal vein is patent and demonstrates normalhepatopedal blood flow. Gallbladder wall is normal in thickness. No cholelithiasis orpericholecystic fluid is identified. Sonographic Carranza sign is negative.Common bile duct and common hepatic duct are not visualized. Visualized portions of the pancreatic head and body are normal. Right kidney measures 9.5 x 4.3 x 5.8 cm and demonstrates normalechogenicity without hydroureteronephrosis. IMPRESSION: Normal sonographic appearance of the right upper quadrant. Ordered By: DARLENE MUÑIZ Interpreted By: Melchor Reyes MD, 07/01/2025 4:36 PM us Darlene Muñiz MD ULTRASOUND Final Re sult * BONE DENSITY GENERIC (SCAN ORDER) (09/27/2024) Anatomical Region Laterality Modality Other 09/27/2024 us [facility] Scanned SCANNING Final Resu lt from Last 3 Months or Most Recently Relevant to Health Maintenance Insurance MEDICARE [facility] Care Teams Thread Puller Relationship Specialty Start Date End Date Darlene Muñiz MD [address] [place] [phone] PCP - General FAMILY PRACTICE 11/06/24 [place] [address] [place] [address] OPHTHALMOLOGY 07/30/25 Carlos Thomas MD [address] [phone] CARDIOVASCULAR DISEASE 07/30/25 Dr. Dora Kirkpatrick [facility] [address] [place] [id number] OPTOMETRY 06/16/25 [facility] [address] [place] [address] [id number] 06/16/25
--- OUTSIDE RECORDS SUMMARY | 2025-09-02 16:01 | XMS_ITS | Encounter Summary ---
Author Organization [facility] Address [address] [place] [address] Care Team Providers Care Water Pollution Control Inspector Name Role Phone Darlene Shaw MD Primary Care Provider + Rodolfo Stewart MD Unavailable [phone] Carlos Thomas MD Unavailable [phone] Encounter Details Date Type Department Care Team (Late st Contact Info) Description 12/14/2024 Results Notification [facility] Family Medicine - [place] [address] [phone] Darlene Shaw MD [address] [phone] Social History Tobacco Use Types Packs/Day Years Used Date Smoking Tobacco: Never Passive Smoke Exposure: Never Smokeless Tobacco: Never Alcohol Use Standard Drinks/Week Comments Not Currently 0 (1 standard drink = 0.6 oz pur e alcohol) occ. PHQ-2 Answer Date Recorded Patient Health Questionnaire-2 Score 0 12/13/2024 Comments Unknown Sex and Gender Information Value Date Recorded Sex Assigned at Not on file Legal Sex Female 10:27 AM CDT Gender Identity Not on file Sexual Orientation Not on file documented as of this encounter Progress Notes * Darlene Shaw MD - 12/14/2024 7:36 AM CST Noted. OND SETTER * Faiza Castellon MA - 12/14/2024 7:16 AM CST Bone density report 09/27/24 Impression: The patient has normal bone mass. Discussion: bone density is above the minimum desirable level at all skeletal sites tested. This pt's bone mineral density is above the minimum desirablelevel (T-score -1.0 or better) at all sites measured. The pt should follow a healthful lifestyle (good nutrition with adequate calcium and vit D and appropriate weight-bearing exercise) Follow up- consider repeating this study in 5 yrs or sooner if there is some new clinical indication. Report on provider's desk. OND SETTER documented in this encounter Plan of Treatment Upcoming Encounters Date Type Department Care Team (Late st Contact Info) Description 08/08/2026 8:30 AM CDT Office Visit [facility] Family Medicine - [place] 7342 [facility] [address] [place] [address] [phone] Darlene Shaw MD [address] [place] [address] documented as of this encounter Visit Diagnoses Not on filedocumented in this encounter Care Teams Water Pollution Control Inspector Relationship Specialty Start Date End Date Darlene Shaw MD [address] [place] [address] [phone] PCP - General FAMILY PRACTICE 11/06/24 [place] [address] [place] [address] OPHTHALMOLOGY 07/30/25 Carlos Thomas MD [address] [place] [address] [phone] CARDIOVASCULAR DISEASE 07/30/25 Dr. Dora [facility] Eye [address] [address] OPTOMETRY 06/16/25 [facility] [address] [place] [address] 06/16/25 documented as of this encounter
--- OUTSIDE RECORDS SUMMARY | 2025-09-02 16:01 | XMS_ITS | Encounter Summary ---
Author Organization [facility] Address [address] [place] [address] Care Team Providers Care Oil Field Pumper Name Role Phone Darlene Shaw MD Primary Care Provider + Rodolfo Stewart MD Unavailable Carlos Thomas MD Unavailable Encounter Details Date Type Department Care Team (Late Contact Info) Description 11/19/2024 MyChart Message Enc [facility] Family [facility] [address] [address] Lorena Juarez NP [address] [address] follow up Social History Tobacco Use Types Packs/Day [...] Description 08/08/2026 8:30 AM CDT Office Visit [facility] [address] [address] Dralene Shaw MD [address] [place] [address] documented as of this encounter Visit Diagnoses Not on filedocumented in this encounter Care Teams Oil Field Pumper Relationship Specialty Start Date End Date Darlene Shaw MD [address] [place] [address] PCP - General FAMILY PRACTICE 11/06/24 [place] [address] [place] [address] OPHTHALMOLOGY 07/30/25 Carlos Thomas MD [address] [place] [address] [phone] CARDIOVASCULAR DISEASE 07/30/25 Dr. Dora Kirkpatrick [facility] [address] [place] [address] [phone] OPTOMETRY 06/16/25 [facility] [address] [place], [place] [phone] 06/16/25 documented as of this encounter
--- OUTSIDE RECORDS SUMMARY | 2025-09-02 16:01 | XMS_ITS | Clinical Summary ---
Author Organization [facility] Address [address] [place] [address] Care Team Providers Care Schedule Clerk Name Role Phone Elly Edwards MD Primary Care Provider Za garcia Encounters Date Type Department Care Team Description 07/23/2025 External Device Data STL ABSTRACTION Provider, Abstract 07/09/2025 External Device Data ST[place] ABSTRACTION Provider, Abstract 06/25/2025 External Device Data [place] ABSTRACTION Provider, Abstract 06/05/2025 External Device Data [place] ABSTRACTION Provider, Abstract 06/04/2025 External Device Data STL ABSTRACTION Provider, Abstract from Last 3 Months Social History Tobacco Use Types Packs/Day Years Used Date Smoking Tobacco: Never Assessed Comments Unknown Sex and Gender Information Value Date Recorded Sex Assigned at Not on file Legal Sex Female 2:29 PM SEVERITY OF ILLNESS COORDINATOR Gender Identity Not on file Sexual Orientation Not on file Plan of Treatment Health Maintenance Due Date Last Done Comments DTAP/TDAP/TD VACCINES (1 - Tdap) 1966 PNEUMOCOCCAL VACCINE 50+ YEARS (1 of 1 - PCV) 12/16/18 98 ZOSTER VACCINE (1 of 2) 1997 OSTEOPOROSIS SCREENING 2012 RSV VACCINE (60+ or ) (1 - 1-dose 75+ series) 2022 INFLUENZA VACCINE (#1) 2025 Care Teams Schedule Clerk Relationship Specialty Start Date End Date Elly Edwards MD PCP - General Family Practice 01/15/20
--- OUTSIDE RECORDS SUMMARY | 2025-09-02 16:01 | XMS_ITS | Encounter Summary ---
Author Organization [facility] Address [address] [place] [address] Care Team Providers Care Healthcare Consultant Name Role Phone Darlene Shaw MD Primary Care Provider + Rodolfo Stewart MD Unavailable Carlos Thomas MD Unavailable Encounter Details Date Type Department Care Team (Latest Contact Info) Description 07/02/2025 Results Follow-Up [facility] Family Medicine - [place] [address] [place] [address] [phone] Darlene Shaw MD [address] [place] [address] [phone] ABD LIMITED, COMPREHENSIVE METABOLIC PANEL Social History Tobacco Use Types Packs/Day Years Used Date Smoking Tobacco: Never Passive Smoke Exposure: Never Smokeless Tobacco: Never Alcohol Use Standard Drinks/Week Comments Not Currently 0 (1 standard drink = 0.6 oz pur e alcohol) occ. AUDIT-C Answer Date Recorded Q1: How often [...] on file documented as of this encounter Functional Status * Over the past 2 weeks, how often have you been bothered by any of the following problems? Question Answer Date of Assessment Author Status Little interest or pleasure in doing things Several days 07/30/2025 10:02 AM ALBETROT Catherine Bhandari RN Acti ve Feeling down, depressed, or hopeless Several days 07/30/2025 10:02 AM CDT Catherine Bhandari RN Active Patient Health Questionnaire-2 Score 2 07/30/2025 10:02 AM CDT Catherine Bhandari R N Active * If you checked off any problems on this questionnaire so far, Question Answer Date of Assessment Author Status How difficult have these problems made it for you to do your work, take care of things at home, or get along with other people? Somewhat difficult 07/30/2025 10:02 AM ALBERTOT Catherine Bhandari RN Active documented as of this encounter Plan of Treatment Upcoming Encounters Date Type Department Care Team (Late st Contact Info) Description 08/08/2026 8:30 AM CDT Office Visit [facility] Family Medicine - [place] 7342 [facility] [address] [place] [address] [phone] Darlene Shaw MD [address] [place] [address] Scheduled Orders Name Type Priority Associated Diagnoses Orde r Schedule COMPREHENSIVE METABOLIC PANEL Lab Routine Elevated liver enzymes Expected: 10/02/2025 (Approximate), Expires: 07/02/2026 documented as of this encounter Visit Diagnoses Diagnosis Elevated liver enzymes- Primary Nonspecific elevation of levels of transaminase or lactic acid dehydrogenase (LDH) documented in this encounter Care Teams Healthcare Consultant Relationship Specialty Start Date End Date Darlene Shaw MD [address] [place] [address] [phone] PCP - General FAMILY PRACTICE 11/06/24 [place] [address] [place] [address] OPHTHALMOLOGY 07/30/25 Carlos Thomas MD [address] [facility] [address] [place] [address] CARDIOVASCULAR DISEASE 07/30/25 Dr. Dora Kirkpatrick [facility] Eye [address] [phone] OPTOMETRY 06/16/25 [facility] [address] [place] [address] 06/16/25 documented as of this encounter
--- OUTSIDE RECORDS SUMMARY | 2025-09-02 16:01 | XMS_ITS | Encounter Summary ---
Author Organization [facility] Address [address] [place] [address] Care Team Providers Care Coroner/Medical Examiner Name Role Phone Darlene Shaw MD Primary Care Provider + Rodolfo Stewart MD Unavailable [phone] Carlos Thomas MD Unavailable Encounter Details Date Type Department Care Team (Late Contact Info) Description 11/15/2024 MyChart Message Enc [facility] Family Medicine [facility] [address] [place] [address] Lorena Juarez NP [address] [address] Follow up on blood pressure Social History Tobacco Use Types Packs/Day Years [...] Description 08/08/2026 8:30 AM CDT Office Visit [place] [phone] [facility] [address] [place] [address] Darlene Shaw MD [address] [place] [address] 400064 documented as of this encounter Visit Diagnoses Not on filedocumented in this encounter Care Teams Coroner/Medical Examiner Relationship Specialty Start Date End Date Darlene Shaw MD [address] [place] [address] PCP - General FAMILY PRACTICE 11/06/24 [place] [address] [place] [address] OPHTHALMOLOGY 07/30/25 Carlos Thomas MD [address] [phone] CARDIOVASCULAR DISEASE 07/30/25 Dr. Dora Kirkpatrick [facility] Care [address] [place] [address] OPTOMETRY 06/16/25 [facility] [address] [place], [place] [phone] 06/16/25 documented as of this encounter
--- OUTSIDE RECORDS SUMMARY | 2025-09-02 16:01 | XMS_ITS | Encounter Summary ---
Author Organization [facility] Address [address] [place] [address] Care Team Providers Care Honing Machine Set Up Operator Tool Name Role Phone Darlene Shaw MD Primary Care Provider + Rodolfo Stewart MD Unavailable [phone] Carlos Thomas MD Unavailable [phone] Encounter Details Date Type Department Care Team (Late st Contact Info) Description 11/08/2024 MyCMeteo Protectt Message Enc [facility] Family Medicine - [place] [address] [place] [address] [phone] Darlene Shaw MD [address] [place] [address] [phone] Blood pressure Social History Tobacco Use Types Packs/Day [...] as of this encounter Progress Notes * Faiza Castellon MA - 11/15/2024 12:53 PM CST Pt told that lisinopril was called out around noon. She is going to come in for a bmp today also. Needs to have bp ck also. PRESSER documented in this encounter Plan of Treatment Upcoming Encounters Date Type Department Care Team (Late st Contact Info) Description 08/08/2026 8:30 AM CDT Office Visit [facility] Family Medicine - [place] [address] [place] [address] Darlene Shaw MD [address] [place] [address] [phone] documented as of this encounter Visit Diagnoses Not on filedocumented in this encounter Care Teams Honing Machine Set Up Operator Tool Relationship Specialty Start Date End Date Darlene Shaw MD [address] [place] [address] 555304 PCP - General FAMILY PRACTICE 11/06/24 [place] [address] [place] [address] OPHTHALMOLOGY 07/30/25 Carlos Thomas MD [address] [place] [address] CARDIOVASCULAR DISEASE 07/30/25 Dr. Dora Kirkpatrick [facility] [address] [place] [address] OPTOMETRY 06/16/25 [facility] [address] [place], [place] [phone] 06/16/25 documented as of this encounter
== END 2025-09-02 15:17 | disposition home or self-care (01) ==
LOC: ANHFOHIMG 15:19
PROVIDERS: PCP Student in an Organized Health Care Education/Training Program; Visit Provider Student in an Organized Health Care Education/Training Program
DX: Z12.31 Encounter for screening mammogram for malignant neoplasm of breast (principal)
CPT/HCPCS: 77063; 77067

== ENCOUNTER 2025-10-09 01:30 | Day surgery (SDC) | payer MEDICARE, SELFPAY ==
[2025-10-08 15:47] VITALS: BMI 26.3
[2025-10-09] VITALS (7 sets, daily range): BP systolic 108–168; BP diastolic 66–112; PULSE 70–89; RESP 16–22; TEMP 36.4; O2SAT 94–100; BMI 27.8
--- OUTSIDE RECORDS SUMMARY | 2025-10-09 05:33 | XMS_ITS | Encounter Summary ---
Author Organization [facility] Address [address] [place] [address] Care Team Providers Care Supervisor Extrusion Name Role Phone Darlene Shaw MD Primary Care Provider Encounter Details Date Type Department Care Team (Late st Contact Info) Description 09/07/2025 Results Follow-Up [facility] [place] [address] [place] [address] Josias Preston NP 2122 [facility] [address] [place] [address] Throat culture Throat Social History Tobacco Use Types Packs/Day Years Used Date Smoking Tobacco: Never Smokeless Tobacco: Never AUDIT-C Answer Date Recorded Q1: How often [...] on file Legal 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 Gender Identity Female 08/25/2023 11:27 AM CDT Sexual Orientation Not on file documented as of this encounter Functional Status * BP Location Answer Date of Assessment Author Right arm 09/10/2025 1:55 PM CDT Fe Russell MA * BP Location Answer Date of Assessment Author Right arm 09/10/2025 1:55 PM CDT Fe Russell MA documented as of this encounter Plan of Treatment Not on file documented as of this encounter Visit Diagnoses Not on filedocumented in this encounter Care Teams Supervisor Extrusion Relationship Specialty Start Date End Date Darlene Shaw MD [address] [address] PCP - General Family Medicine 09/06/25 documented as of this encounter
--- OUTSIDE RECORDS SUMMARY | 2025-10-09 05:33 | XMS_ITS | Clinical Summary ---
Author Organization [facility] Address [address] [place] [address] Care Team Providers Care Regulatory Affairs Associate Name Role Phone Elly Edwards MD Primary Care Provider Za garcia Encounters Date Type Department Care Team Description 09/10/2025 External Device Data STL ABSTRACTION Provider, Abstract 07/23/2025 External Device Data STL ABSTRACTION Provider, Abstract 07/09/2025 External Device Data STL ABSTRACTION Provider, Abstract from Last 3 Months Social History Tobacco Use Types Packs/Day Years Used Date Smoking Tobacco: Never Assessed Comments Unknown Sex and Gender Information Value Date Recorded Sex Assigned at Not on file 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
--- OUTSIDE RECORDS SUMMARY | 2025-10-09 05:34 | XMS_ITS | Encounter Summary ---
Author Organization [facility] Address [address] [place] [address] Care Team Providers Care Survey Research Associate Name Role Phone Darlene Shaw MD Primary Care Provider + Rodolfo Stewart MD Unavailable [phone] Carlos Thomas MD Unavailable Encounter Details Date Type Department Care Team (Late Contact Info) Description 11/15/2024 MyChart Message Enc [facility] Family [facility] [address] [address] Lorena Juarez NP [address] [address] Follow up Social History Tobacco [...] Description 08/08/2026 8:30 AM CDT Office Visit [facility] [address] [address] Darlene Shaw MD [address] [place] [address] documented as of this encounter Visit Diagnoses Not on filedocumented in this encounter Care Teams Survey Research Associate Relationship Specialty Start Date End Date Darlene Shaw MD [address] [place] [address] PCP - General FAMILY PRACTICE 11/06/24 [place] [address] [place] [address] OPHTHALMOLOGY 07/30/25 Carlos Thomas MD [address] [place] [address] [phone] CARDIOVASCULAR DISEASE 07/30/25 Dr. Dora Kirkpatrick [facility] Care [address] [place] [address] [phone] OPTOMETRY 06/16/25 [facility] [address] [place], [place] [phone] 06/16/25 documented as of this encounter
--- OUTSIDE RECORDS SUMMARY | 2025-10-09 05:34 | XMS_ITS | Encounter Summary ---
Author Organization [facility] Address [address] [place] [address] Care Team Providers Care Refinery Operator Reforming Unit Name Role Phone Darlene Shaw MD Primary Care Provider + Rodolfo Stewart MD Unavailable [phone] Carlos Thomas MD Unavailable Encounter Details Date Type Department Care Team (Late Contact Info) Description 11/15/2024 MyChart Message Enc [facility] Family Medicine [facility] [address] [place] [address] Lorena Juarez NP [address] [address] Follow up on blood pressure [...] Description 08/08/2026 8:30 AM CDT Office Visit [place] [phone] [facility] [address] [place] [address] Darlene Shaw MD [address] [place] [address] [phone] documented as of this encounter Visit Diagnoses Not on filedocumented in this encounter Care Teams Refinery Operator Reforming Unit Relationship Specialty Start Date End Date Darlene Shaw MD [address] [place] [address] PCP - General FAMILY PRACTICE 11/06/24 [place] [address] [place] [address] OPHTHALMOLOGY 07/30/25 Carlos Thomas MD [address] [phone] CARDIOVASCULAR DISEASE 07/30/25 Dr. Dora Kirkpatrick [facility] [address] [place] [address] OPTOMETRY 06/16/25 [facility] [address] [place], [place] [phone] 06/16/25 documented as of this encounter
--- OUTSIDE RECORDS SUMMARY | 2025-10-09 05:35 | XMS_ITS | Clinical Summary ---
Author Organization [facility] Address [address] [place] [address] Care Team Providers Care Vice President Compliance Name Role Phone Darlene Shaw MD Primary Care Provider + Rodolfo Stewart MD Unavailable [phone] Carlos Thomas MD Unavailable [phone] Allergies No known active allergies Medications rivaroxaban [...] metoprolol. Assessment & Plan (12/13/2024 10:42 AM MOLD SHOP SUPERVISOR): Controlled. Occasional readings are borderline. Cont lisinopril and metoprolol. She will continue monitoring home readings. Assessment & Plan (11/06/2024 8:57 AM MOLD SHOP SUPERVISOR): New diagnosis. Not controlled. Metoprolol which is [...] years. Assessment & Plan (11/06/2024 8:58 AM MOLD SHOP SUPERVISOR): Chronic and controlled. Continue Lexapro. Gastroesophageal reflux [...] medication. Assessment & Plan (11/06/2024 8:59 AM MOLD SHOP SUPERVISOR): Ordered CMP and lipid panel for next visit. Continue atorvastatin. Mild major depression 01/03/2023 Overview (11/06/2024): Takes Lexapro. Assessment & Plan (05/10/2025 11:01 AM CDT): Stable. Continue Lexapro. Mitral valve prolapse 01/03/2023 Overview (11/06/2024): Sees Dr. Thomas at [facility]. Paroxysmal atrial fibrillation 04/01/2022 Overview (11/06/2024): Rate [...] Stable. Assessment & Plan (11/06/2024 8:59 AM MOLD SHOP SUPERVISOR): Managed per cardiology. Chronic and stable. Encounters Date Type Department Care Team Description 09/02/2025 Scan [employer] INFO SRVCS Scanned, Doc [facility] Group Mammogram (SCAN) 08/02/2025 [employer] Message Enc [address] [address] Darlene Shaw MD Blood pressure 07/30/2025 9:30 AM CDT Office Visit [address] [place] [address] Darlene Shaw MD Medicare Wellness (Patient presents today for their Medicare Annual Wellness Visit.) 07/30/[address] [address] Darlene Shaw MD Health Maintenance Follow Up (Elevated B/P at today's AWV) 07/30/[address] [place] [address] Darlene Shaw MD Appointment Request (Req for DM eye exam) 07/30/2025 Travel 07/09/2025 Telephone [facility] Family Medicine - [place] [address] [facility] [address] [place] [address] Darlene Shaw MD Appointment Request (AWV- Left message) from Last 3 Months Immunizations Immunization Administration Dates Next Due FLUAD (IIV, Trivalent, 0.5 M L Pre-filled Syringe) 09/03/2024 Fluzone High Dose (IIV, triv alent, 0.5mL) 03/11/2022 Fluzone High Dose - >Age 65 (Prefilled Syringe) 09/05/2021,07/24/2020 Influenza (Generic) 08/19/2023,09/16/2014,2012 Influenza Adult (Generic) 08/19/2023,,08/19/2023,2021,08/18/2022,09/08/2021,09/05/2021,0 08/14/2020,07/24/2020,10/16/2019, 019,10/05/2017,10/11/2016,10/08/2015 Pneumococcal (Pneumovax 23) 03/21/2023, Pneumococcal (Prevnar 13) 10/05/2017 Shingrix 08/14/2020,09/10/2019 Tdap (Generic) 01/03/2024,08/11/2012 Zoster (Zostavax) [address] Unt/0.65Ml 07/16/2011 Family History Medical History Relation [...] Description 08/08/2026 8:30 AM CDT Office Visit [facility] Family Medicine - [place] [address] [facility] [address] [place] [address] [phone] Darlene Shaw MD [address] [place], [place] [phone] Health Maintenance Due Date Last Done Comments Influenza Adult (#1) 2025 09/03/2024, 08/19/2023, 08/19/2023, Additional history exists COVID-19 Vaccine ( - season) 2026 02/07/2021, 01/17/2021 Postponed from 07/22/2025 [...] 09/27/2024, Hepatitis C Completed 07/02/2025 PHQ-2 (Physician Dexter) Completed 07/30/2025 Hepatitis A Vaccines Aged Out [...] this topic Medical Devices Implanted Type Area Banana Ripening Room Supervisor Device Identifier Shelf Expiration Date Model / Serial / Lot Tecnis 1-Piece Iol Implanted:Qty: 1 on 02/13/2024 by Rodolfo Stewart MD at [facility] Left: Eye [employer] [id number] 07/14/2026 [id number] / [id number] / Procedures Procedure Name Priority Date/Time Associated Diagnosis Comments MAMMOGRAM GENERIC (SCAN ORDER) 09/02/2025 HEPATITIS PANEL,ACUTE Routine 07/02/2025 7:22 AM CDT Elevated liver enzymes Transaminitis BONE DENSITY GENERIC (SCAN ORDER) 09/27/2024 from Last 3 Months or Most Recently Relevant to Health Maintenance Results * MAMMOGRAM GENERIC (SCAN ORDER) (09/02/2025) Anatomical Region Laterality Modality Other 09/02/2025 Result [facility] Scanned SCANNING Final Resu lt * HEPATITIS PANEL,ACUTE (07/02/2025 7:22 AM CDT) HEPATITIS B SURFACE AG NON-REACT ALEKS NON-REACT ALEKS 07/02/2025 6:44 PM CDT [facility] Comment:HBsAg NOT DETECTED. HEP B CORE IGM NON-REACT ALEKS NON-REACT ALEKS 07/02/2025 6:44 PM CDT [facility] Comment: IgM ANTI HBc NOT DETECTED. DOES NOT EXCLUDE THE POSSIBILITY OF EXPOSURE TO OR INFECTION WITH HBV. NO RETEST REQUIRED. HIGH DOSES OF BIOTIN MAY INTERFERE WITH THIS TEST RESULT. CORRELATION TO CLINICAL HISTORY AND PRESENTATION RECOMMENDED. HAV IGM NON-REACT ALEKS NON-REACT ALEKS 07/02/2025 6:44 PM CDT [facility] Comment: IgM ANTI HAV NOT DETECTED. DOES NOT EXCLUDE THE POSSIBILITY OF EXPOSURE TO OR INFECTION WITH HAV. LEVELS OF IgM ANTI HAV MAY BE BELOW THE CUTOFF IN EARLY INFECTION. HEPATITIS C AB NON-REACT ALEKS NON-REACT ALEKS 07/02/2025 6:44 PM CDT [facility] Comment: ANTIBODIES TO HCV NOT DETECTED. DOES NOT EXCLUDE THE POSSIBILITY OF EXPOSURE TO HCV. 07/02/2025 7:22 AM CDT Darlene Shaw MD LABORATORY Final Re sult [facility] [address] [place] [address], [id number] * BONE DENSITY GENERIC (SCAN ORDER) (09/27/2024) Anatomical Region Laterality Modality Other 09/27/2024 [facility] Scanned SCANNING Final Resu lt from Last 3 Months or Most Recently Relevant to Health Maintenance Insurance MEDICARE [facility] Care Teams Vice President Compliance Relationship Specialty Start Date End Date Darlene Shaw MD [address] [place] [address] PCP - General FAMILY PRACTICE 11/06/24 [place] [address] [place] [address] OPHTHALMOLOGY 07/30/25 Carlos Thomas MD [address] [place] [address] [phone] CARDIOVASCULAR DISEASE 07/30/25 Dr. Dora [facility] [address] [place] [address] [phone] OPTOMETRY 06/16/25 [facility] [address] [place] [phone] 06/16/25
--- OUTSIDE RECORDS SUMMARY | 2025-10-09 05:35 | XMS_ITS | Encounter Summary ---
Author Organization [facility] Address [address] [place] [address] Care Team Providers Care Manager Hospital Name Role Phone Darlene Shaw MD Primary Care Provider + Rodolfo Stewart MD Unavailable [phone] Carlos Thomas MD Unavailable Encounter Details Date Type Department Care Team (Late st Contact Info) Description 12/14/2024 Results Notification [facility] Family Medicine - [place] [address] [phone] Darlene Shaw MD [address] [phone] Social History Tobacco Use Types Packs/Day Years [...] MD - 12/14/2024 7:36 AM CST Noted. SPECIALIST * Faiza Castellon MA - 12/14/2024 7:16 [...] new clinical indication. Report on provider's desk. SPECIALIST documented in this encounter Plan of Treatment Upcoming Encounters Date Type Department Care Team (Late st Contact Info) Description 08/08/2026 8:30 AM CDT Office Visit [facility] Family Medicine - [place] [address] [facility] [address] [place] [phone] Darlene Shaw MD [address] [place] [address] documented as of this encounter Visit Diagnoses Not on filedocumented in this encounter Care Teams Manager Hospital Relationship Specialty Start Date End Date Darlene Shaw MD [address] [place] [address] [phone] PCP - General FAMILY PRACTICE 11/06/24 [place] [address] [place] [address] OPHTHALMOLOGY 07/30/25 Carlos Thomas MD [address] [place] [address] [phone] CARDIOVASCULAR DISEASE 07/30/25 Dr. Dora [facility] Eye [address] [address] OPTOMETRY 06/16/25 [facility] [address] [place] [address] 06/16/25 documented as of this encounter
--- OUTSIDE RECORDS SUMMARY | 2025-10-09 05:35 | XMS_ITS | Encounter Summary ---
Author Organization [facility] Address [address] [place] [address] Care Team Providers Care Content Strategy Lead Name Role Phone Darlene Shaw MD Primary Care Provider + Rodolfo Stewart MD Unavailable Carlos Thomas MD Unavailable [phone] Encounter Details Date Type Department Care Team (Late st Contact Info) Description 11/08/2024 [employer] Message Enc [facility] Family Medicine - [place] [address] [place] [address] [phone] Darlene Shaw MD [address] [place] [address] [phone] Blood pressure Social History Tobacco Use Types [...] also. Needs to have bp ck also. IAL EDUCATION RESOURCE ROOM TEACHER documented in this encounter Plan of Treatment Upcoming Encounters Date Type Department Care Team (Late st Contact Info) Description 08/08/2026 8:30 AM CDT Office Visit [facility] Family Medicine - [place] [address] [place] [address] Darlene Shaw MD [address] [place] [address] [phone] documented as of this encounter Visit Diagnoses Not on filedocumented in this encounter Care Teams Content Strategy Lead Relationship Specialty Start Date End Date Darlene Shaw MD [address] [place] [address] [phone] PCP - General FAMILY PRACTICE 11/06/24 [place] [address] [place] [address] OPHTHALMOLOGY 07/30/25 Carlos Thomas MD [address] [place] [address] CARDIOVASCULAR DISEASE 07/30/25 Dr. Dora Kirkpatrick [facility] [address] [place] [phone] OPTOMETRY 06/16/25 [facility] [address] [place], [place] [phone] 06/16/25 documented as of this encounter
--- OUTSIDE RECORDS SUMMARY | 2025-10-09 05:35 | XMS_ITS | Encounter Summary ---
Author Organization [facility] Address [address] [place] [address] Care Team Providers Care Oil Rag Washer Name Role Phone Darlene Sahw MD Primary Care Provider + Rodolfo Stewart MD Unavailable [phone] Carlos Thomas MD Unavailable [phone] Encounter Details Date Type Department Care Team (Late Contact Info) Description 11/19/2024 MyChart Message Enc [facility] Family [facility] [address] [address] Lorena Juarez NP [address] [phone] follow up Social History Tobacco [...] Description 08/08/2026 8:30 AM CDT Office Visit [facility] [address] [address] Darlene Shaw MD [address] [place] [address] documented as of this encounter Visit Diagnoses Not on filedocumented in this encounter Care Teams Oil Rag Washer Relationship Specialty Start Date End Date Darlene Shaw MD [address] [place] [address] PCP - General FAMILY PRACTICE 11/06/24 [place] [address] [place] [address] OPHTHALMOLOGY 07/30/25 Carlos Thomas MD [address] [place] [address] [phone] CARDIOVASCULAR DISEASE 07/30/25 Dr. Dora Kirkpatrick [facility] [address] [place] [address] [phone] OPTOMETRY 06/16/25 [facility] [address] [place], [place] [phone] 06/16/25 documented as of this encounter
--- OUTSIDE RECORDS SUMMARY | 2025-10-09 05:35 | XMS_ITS | Clinical Summary ---
Author Organization [facility] [address] Address [address] [place] [address] Care Team Providers Care Jointer Machine Name Role Phone Darlene Shaw MD Primary Care Provider Allergies Active Allergy Reactions Criticality Noted Date Comments Clonazepam Unknown 12/17/2021 Latex Other (See comments) Low 12/17/2021 Latex gloves only Ramipril Cough Low 12/17/2021 Medications omega-3 fatty acids/fish oil (FISH OIL OMEGA 3-6-9 ORAL) Fish Oil Sunset 3-6-9 2 daily 10/08/20 15 Active multivitamin tablet multivitamin tablet 1 DAILY 09/24/20 13 Active TURMERIC ORAL Take 1 capsule by mouth daily Active Lumigan 0.01 % ophthalmic drops ADMINISTER 1 DROP INTO BOTH EYES BEFORE SLEEPING FOR 12 MONTHS. 01/09/20 24 Active escitalopram (LEXAPRO) 5 mg tablet Take 1 tablet (5 mg total) by mouth daily 100 tablet 1 04/19/20 24 Active rivaroxaban (Xarelto) 20 mg tablet Take 1 tablet (20 mg total) by mouth daily 30 tablet 6 03/07/20 25 Active timolol maleate/bimatop bib/PF (timoloL-bimato prost, PF,) 0.5-0.01 % drops Active lisinopriL (PRINIVIL,ZESTR IL) 40 mg tablet Take 1 tablet (40 mg total) by mouth daily 11/07/20 24 2025 Active sotaloL (BETAPACE) 80 mg tablet Take 1 tablet (80 mg total) by mouth 2 (two) times a day 60 tablet 2 09/10/20 25 2025 Active atorvastatin (LIPITOR) 10 mg tablet Take 1 tablet (10 mg total) by mouth daily 100 tablet 3 04/26/20 24 2024 Discontinued phenazopyridine (PYRIDIUM) 100 mg tabletIndicatio ns:Dysuria Take 1 tablet (100 mg total) by mouth 3 (three) times a day as needed for urinary pain 6 tablet 08/10/20 24 2024 Discontinued metoprolol XL (TOPROL-XL) 50 mg extended release tabletIndicatio ns:Paroxysmal atrial fibrillation (HCC) TAKE 1 TABLET BY MOUTH EVERY DAY 90 tablet 1 08/05/20 25 2024 Discontinued Active Problems Problem Noted Date Diagnosed Date Gastroesophageal reflux disease 01/03/2023 Hyperlipidemia 01/03/2023 KAYLAH (generalized anxiety disorder) 01/03/2023 Mild major depression 01/03/2023 Paroxysmal atrial fibrillation 04/01/2022 Resolved Problems Problem Noted Date Diagnosed Date Resolved Date Mitral valve prolapse 01/03/20232024 Hypercalcemia 01/03/2023 05/04/2024 Benign essential hypertension 11/25/2021 05/03/2023 Encounters Date Type Department Care Team Description 09/30/2025 1:30 PM JUNIOR ART DIRECTOR Office Visit [facility] Cardiology at [address] [place] [phone] Carlos Thomas MD Paroxysmal atrial fibrillation (HCC) (Primary Dx) 09/30/2025 Telephone [facility] Cardiology at [address] [place] [phone] Carlos Thomas MD 09/17/2025 11:00 AM CDT Procedure visit [facility] [address] [address] [address] [place] [address] Paroxysmal atrial fibrillation (HCC) (Primary Dx) 09/10/2025 1:45 PM CDT Office Visit [facility] Medical [facility] Cardiology at [address] [place] [phone] Carlos Thomas MD Paroxysmal atrial fibrillation (HCC) (Primary Dx) 09/10/2025 Orders Only [facility] Cardiology at [address] [place] [phone] Roxana Sinclair MA Paroxysmal atrial fibrillation (HCC) (Primary Dx) 09/07/2025 Results Follow-Up [facility] at [address] [phone] Josias Preston NP Throat culture Throat 09/06/2025 11:23 AM CDT - 09/06/2025 11:59 PM CDT Hospital Encounter [address] [address] Acute sore throat Discharge Disposition: Discharge to home or self care 09/06/2025 10:45 AM CDT Office Visit [facility] Medical [facility] at [address] [phone] Josias Preston NP Acute sore throat (Primary Dx); Bilateral acute serous otitis media, recurrence not specified from Last 3 Months Immunizations Immunization Administration Dates Next Due Influenza, [...] Father Edward Hypertension Father Edward Stroke Father Edward Arthritis Mother Maria Del Carmen COPD Mother [...] Brother 2 Alive Brother 3 Gene Father Edmagaly (Age 89) Mother Maria Del Carmen (Age [...] on file Legal Sex Female 12:50 AM JUNIOR ART DIRECTOR Gender Identity Female 08/25/2023 11:27 AM CDT Sexual Orientation Not on file Last Filed Vital Signs Vital Sign Reading Time Taken Comments Blood Pressure 124/68 09/30/2025 1:26 PM JUNIOR ART DIRECTOR Pulse 66 09/30/2025 1:26 PM JUNIOR ART DIRECTOR Temperature 36.7 C (98 F) 09/06/2025 10:42 AM CDT Respiratory Rate 18 09/06/2025 10:42 AM CDT Oxygen Saturation 98% 09/30/2025 1:26 PM JUNIOR ART DIRECTOR Inhaled Oxygen Concentration - - Weight 64.4 kg (142 lb) 09/30/2025 1:26 PM JUNIOR ART DIRECTOR Height 152.4 cm (5') 09/30/2025 1:26 PM JUNIOR ART DIRECTOR Body Mass Index 27.73 09/30/2025 1:26 PM JUNIOR ART DIRECTOR Plan of Treatment Health Maintenance Due Date Last Done Comments Osteoporosis Screening-Bone Density Scan 1945 Hepatitis B Screening 1963 Depression Screening 05/04/2025 05/04/2024, 09/26/2023, 09/26/2023, Additional history exists Fall Risk Assessment 05/04/2025 05/04/2024, 05/03/2023, 01/03/2023 Well Visit 65+ 05/04/2025 05/04/2024, 05/03/2023 Covid-19 Vaccine (3 - 2024-2 6 season) 2025 02/07/2021, 01/17/2021 DTaP/Tdap/Td Vaccine (3 - Td or Tdap) 01/03/2034 01/03/2024, 08/11/2012 Zoster Vaccine Completed 08/14/2020, 08/22, 07/16/2011 Hepatitis C Screening Completed 01/10/2023 Pneumococcal vaccine 65+ Completed 023, 03/11/2022, 10/05/2017 Breast Cancer Screening-Mammogram Discontinued 024 Colon Cancer Screening-Colonoscopy Discontinued 03/13/2024 Influenza Vaccine Completed 09/13/2025, , 08/19/2023, Additional history exists Procedures Procedure Name Priority Date/Time Associated Diagnosis Comments ECG 12-LEAD Routine 09/30/2025 1:28 PM JUNIOR ART DIRECTOR Paroxysmal atrial fibrillation (HCC) ECG 12-LEAD Routine 09/17/2025 1:00 PM CDT Paroxysmal atrial fibrillation (HCC) ECG 12-LEAD Routine 09/10/2025 2:12 PM CDT Paroxysmal atrial fibrillation (HCC) POCT RAPID STREP Routine 09/06/2025 11:0 0 AM CDT Acute sore throat THROAT CULTURE Routine 09/06/2025 9:30 AM CDT Acute sore throat HM COLONOSCOPY Routine 03/13/2024 MAMMOGRAPHY Routine 03/07/2024 HEPATITIS C ANTIBODY Routine 01/10/2023 9:02 AM JUNIOR ART DIRECTOR Encounter for hepatitis C screening test for low risk patient from Last 3 Months or Most Recently Relevant to Health Maintenance Results * ECG 12 lead (09/30/2025 1:28 PM JUNIOR ART DIRECTOR) Carlos Thomas MD ECG ORDERABLES Edited R esult - Final * ECG 12 lead (09/17/2025 1:00 PM CDT) Carlos Thomas MD ECG ORDERABLES Final Re sult * ECG 12 lead (09/10/2025 2:12 PM CDT) Carlos Thomas MD ECG ORDERABLES Final Re sult * POCT rapid strep A (09/06/2025 11:00 AM CDT) Rapid Strep A, POC Negative Negative Swab 09/06/2025 11:0 0 AM CDT Josias Preston NP POINT OF CARE TEST ORDERABLES F inal Result * Throat culture Throat (09/06/2025 9:30 AM CDT) Report Final Report: No growth of pathogens. Comment:Testing performed by : [facility], [address] [facility], [place]., [address] Throat 09/06/2025 9:30 AM CDT 09/06/2025 6:57 PM CDT Narrative [facility] - 09/07/2025 2:39 PM CDT Testing performed by [facility] Microbiology Laboratory ([phone]). Result [facility] Josias Preston NP LAB MICROBIOLOGY - GENERAL CATRACHITO ZAMBRANO Final Result Performing Organization Address City/[facility]/ZIP Co de Phone Number [facility] [address] [address] Department [employer] [address] * (ABNORMAL) COLONOSCOPY (03/13/2024) Scribed Colonoscopy Abnormal Result [facility] Provider [place] HEALTH MAINTENANCE Final Result * MAMMOGRAPHY (03/07/2024) Mammography Normal [facility] Provider HEALTH MAINTENANCE Final Result * Hepatitis C antibody (01/10/2023 9:02 AM JUNIOR ART DIRECTOR) Hep C Ab Nonreactive Nonreactive [facility] Comment: Interpretive Data Nonreactive: Antibodies to HCV [...] revised on 2020. Blood 01/10/2023 9:02 AM JUNIOR ART DIRECTOR 01/10/2023 3:19 PM JUNIOR ART DIRECTOR Anum Estrada MD LAB MICROBIOLOGY - GEN ERAL ORDERABLES Final Result Performing Organization Address City/[facility]/ZIP Co de Phone Number [facility] [address] [address] Department of Laboratories [place], [place] [phone] from Last 3 Months or Most Recently Relevant to Health Maintenance Insurance MEDICARE MEDICARE BLUE CROSS MEDICARE SUPPLEMENT Care Teams Jointer Machine Relationship Specialty Start Date End Date Darlene Shaw MD [address] [facility] [address] [place] [address] PCP - General Family Medicine 09/06/25
--- NOTE | 2025-10-09 07:00 | ECG_ITS ---
Test Date: 2025-10-09 07:24:34 Measurements Intervals [place] Rate: 81 P: 0 WI: 0 QRS: -46 QRSD: 99 T: 29 QT: 419 QTc: 489 Interpretive Statements ATRIAL FIBRILLATION PATTERN CONSISTENT WITH PULMONARY DISEASE LEFT ANTERIOR FASCICULAR BLOCK [QRS AXIS <= -45, QR IN I, RS IN II] ABNORMAL ELECTROCARDIOGRAM No previous ECG available for comparison Electronically Signed On 10-09-2025 07:49:56 MECHANICAL FACILITIES TECHNICIAN by Carlos Thomas M.D.
[2025-10-09 08:10] LABS: Anion Gap 5 mmol/L (4-12); Blood Urea Nitrogen 21 mg/dL (7-17); Calcium 9.4 mg/dL (8.4-10.2); Carbon Dioxide 28 mmol/L (22-30); Chloride 104 mmol/L (98-107); Estimated CRCL calculation 41 ml/min; Estimated Glomerular Filt Rate > 60; Glucose 93 mg/dL (65-110); Magnesium 2.1 mg/dL (1.6-2.3); Potassium 4.0 mmol/L (3.4-5.0); Sodium 137 mmol/L (137-145)
--- NOTE | 2025-10-09 08:16 | WPDMODSED ---
Moderate Sedation Note-Pt Data Patient Data Diagnosis: Recurrent symptomatic atrial fibrillation Present Complaint: Shortness of breath/fatigue Procedure to be performed/Plan: DC cardioversion Allergies Allergy/AdvReac Type Severity Reaction Status Date / Time latex Allergy Mild TOPICAL ON Verified 10/08/25 15:39 HANDS-RASH Home Medications ?Medication ?Instructions ?Recorded ?Confirmed ?Type [place]-3 Fish Oil 1,120 mg PO DAILY 11/01/19 10/08/25 History escitalopram oxalate 5 mg tablet 5 mg PO DAILY 11/01/19 10/08/25 History (Lexapro) timolol maleate 0.5 % eye drops 1 drp RIGHT EYE QAM 08/27/21 10/08/25 History rivaroxaban 20 mg tablet (Xarelto) 20 mg PO DAILY@1700 #30 tabs 11/01/21 10/08/25 Rx Centrum Silver Women 1 tab-cap PO DAILY 03/02/24 10/08/25 History Turmeric-Curcumen 500 mg PO DAILY 03/02/24 10/08/25 History bimatoprost 0.01 % eye drops 1 drp RIGHT EYE HS 03/02/24 10/08/25 History ([place]) lisinopril 40 mg tablet 40 mg PO HS 10/08/25 10/08/25 History sotalol 80 mg tablet 80 mg PO Q12H 10/09/25 10/09/25 History Sedation/Anesthesia: No previous sedation/anesthesia problems (including family history). [facility] Past Medical History Medical History Anxiety Hyperlipidemia Hypertension Rectal bleeding Family History Family History Mother A-fib Heart failure Dementia Father Cerebrovascular accident Sibling A-fib Breast cancer Thyroid cancer Malignant neoplasm of prostate Social History Social History Smoking status: Never smoker Second hand tobacco smoke exposure: No Alcohol intake: former Drinks per week: 1 Substance use: never Substance use type: does not use Living arrangements: with family Spiritual care concerns: No Mod Sed Physical Exam Physical Exam Pre Procedural Exam: Normal: Appearance, Neck, Throat, Airway, Lungs, Heart Size, Neuro Exam and Extremities and Variation: Heart Rate and Heart Rhythm (Irregularly irregular) Hours since solid foods: 12 Hours since liquid intake: 12 Mallampati Classification: class II Internal Medicine - PN: Obj Da Vital Signs Vital Signs: Vital Signs - 24 hr 10/09/25 07:27 Temperature 36.4 C L Pulse Rate 89 Respiratory Rate 16 Blood Pressure 168/112 H Pulse Oximetry 99 Oxygen Delivery Room Air Labs 10/09/25 07:34 Labs: Laboratory Results - last 24 hr 10/09/25 07:34 Sodium 137 Potassium 4.0 Chloride 104 Carbon Dioxide 28 Anion Gap 5 BUN 21 H Creatinine 0.89 Estim Creat Clear Calc 41 Estimated GFR > 60 Glucose 93 Calcium 9.4 Magnesium 2.1 ASA Classification/Sedation ASA Classification/Sedation ASA Class: II Emergent: No Risks: Risks, benefits and alternatives explained and patient/family accepted plan for sedation. Patient re-evaluated immediately prior to sedation.
[2025-10-09] MEDS: PROPOFOL IV EMULSION 200 MG/20 ML VIAL 70 MG IV PUSH (08:29)
--- NOTE | 2025-10-09 08:34 | P.PCNCC_ITS ---
Cardiac Cath Procedure Note Date of procedure:: 10/09/25 Performing physician:: Carlos Thomas MD Indication:: Recurrent symptomatic atrial fibrillation Brief clinical history:: This is a 79-year-old lady with a history of paroxysmal atrial fib originally diagnosed in 2020. She now has a recurrent of her arrhythmias an outpatient that is symptomatic with fatigue and dyspnea. She is anticoagulated with r ivaroxaban Procedure Procedure performed:: DC cardioversion Sedation/Medication given:: Propofol in aliquots total dosage of 70 mg Estimated blood loss:: No blood loss Procedure note:: Patient was brought to the cardiac catheterization lab in the postabsorptive state IV access was established in the left upper extremity defibrillator patches were placed in the AP position the defibrillator was turned on and set at 200 joules of wood, synchronized mode. She was then sedated with propofol in aliquots as mentioned above. Very good sedation was achieved she was counter shocked with 200 joules x1 restoring sinus bradycardia. Findings:: As above Conclusion:: Was successful uncomplicated DC cardioversion of atrial fib restoring sinus bradycardia using 200 joules x1 shock Carlos Thomas MD [facility]
--- NOTE | 2025-10-09 09:00 | ECG_ITS ---
Test Date: 2025-10-09 08:33:21 Measurements Intervals [place] Rate: 46 P: 33 DC: 193 QRS: -41 QRSD: 104 T: 3 QT: 537 QTc: 474 Interpretive Statements SINUS BRADYCARDIA WITH MARKED SINUS ARRHYTHMIA LEFT AXIS DEVIATION [QRS AXIS < -30] LOW QRS VOLTAGE IN PRECORDIAL LEADS [QRS DEFLECTION < 1.0 mV IN CHEST LEADS] PATTERN CONSISTENT WITH PULMONARY DISEASE PROLONGED QT INTERVAL POOR R-WAVE PROGRESSION ABNORMAL ECG Electronically Signed On 10-09-2025 17:07:23 [employer]ION by Melchor Saunders M.D.
== END 2025-10-09 09:59 | disposition home or self-care (01) ==
PROVIDERS: PCP Student in an Organized Health Care Education/Training Program; Visit Provider Specialist
PROC: 5A2204Z Restoration of Cardiac Rhythm, Single (ICD-10-PCS; principal; 2025-10-09 08:30)
DX: I48.91 Unspecified atrial fibrillation (principal); Z79.01 Long term (current) use of anticoagulants
CPT/HCPCS: 36415; 80048; 83735; 92960; J2704; J7040